=== PATIENT | male | born 1990 | race Caucasian/White ===

== ENCOUNTER 2023-05-24 20:30 | Emergency (ER) | payer OTHER, SELFPAY ==
[2023-05-24 20:39] VITALS: BP 141/91; PULSE 96; RESP 16; TEMP 36.6; O2SAT 98; BMI 27.3
[2023-05-24 21:55] VITALS: BP 135/84; PULSE 96; RESP 16; TEMP 36.6; O2SAT 98
--- NOTE | 2023-05-24 21:58 | ED.GENADULT ---
HPI - General Adult General Date Seen: 05/24/23 Chief complaint: Nausea/Vomiting Stated complaint: vomiting 12 hrs Time Seen by Provider: 05/24/23 20:56 History of Present Illness HPI narrative: This is a pleasant 33-year-old male with a past history including hypertension (previously on metoprolol, recently started on Semaglutide by his primary care provider) recent right chest wall injury with possible nondisplaced right 5th rib fracture, who presents to the ER today for nausea and vomiting. He had been on some Mag were tied for blood pressure: To help facilitate weight loss recently. They increased his dose and he took his 1st injection of the higher dose medication yesterday. Yesterday evening he he began to feel sick. He has had nausea since overnight and all day today. He has had multiple episodes, probably 6, nonbilious, nonbloody emesis. No diarrhea. No fever. His abdomen is mildly sore from vomiting but no other abdominal pain. No distention. He is suspicious that this is probably a side effect of his medicine. He also notes that there was a co-worker who was sick with vomiting and diarrhea few days ago. No other known sick contacts. Related Data Home Medications Medication Instructions Recorded Confirmed bupropion HCl 150 mg 24 hr tablet, 150 mg PO QAM 05/15/23 05/15/23 extended release dextroamphetamine-amphetamine 10 1 tab PO DAILY 05/15/23 05/15/23 mg tablet dextroamphetamine-amphetamine 20 1 tab PO DAILY 05/15/23 05/15/23 mg tablet fluoxetine 20 mg capsule 20 mg PO DAILY 05/15/23 05/15/23 metoprolol succinate 25 mg 25 mg PO DAILY 05/15/23 05/15/23 tablet,extended release 24 hr Allergies Allergy/AdvReac Type Severity Reaction Status Date / Time No Known Drug Allergies Allergy Verified 05/15/23 17:23 [facility] Medical History (Updated 05/24/23 @ 21:54 by Giovanni Vergara RN) No significant past medical history Surgical History (Updated 05/24/23 @ 21:54 by Giovanni eVrgara RN) No significant past surgical history Social History Smoking Status: Former smoker Second hand tobacco smoke exposure: No How often do you have a drink containing alcohol: never How often do you have six or more drinks on one occasion: Never AUDIT-C Alcohol total score: 0 Non-prescribed substance use: denies use Exam Narrative: Exam Narrative: Constitutional: Appears well-developed and well-nourished. Alert. Conversant. Non toxic. HENT: Head: Atraumatic. Nose: Nose normal. Mouth/Throat: Oral mucosa is clear but dry, not desiccated or cracked no trismus. Pharynx normal. Tonsils symmetric. No tonsillar enlargement, erythema, or exudate. Eyes: Conjunctivae normal. EOM normal. Pupils equal, round, and reactive to light. No scleral icterus. Neck: Normal range of motion. Neck supple. No tracheal deviation present. Cardiovascular: Normal rate, regular rhythm. No gallop. No friction rub. No murmur heard. Symmetric radial artery pulses Pulmonary/Chest: Effort normal. No stridor. No respiratory distress. No wheezes. No rales. No rhonchi . No tenderness. Abdominal: Soft. Bowel sounds normal. No distension. No mass. No tenderness. No rebound. No guarding. No right upper quadrant tenderness. No right lower quadrant tenderness. No Tapia side. Yo peritoneal findings. Musculoskeletal: RUE: Normal range of motion. No tenderness. No deformity LUE: Normal range of motion. No tenderness. No deformity RLE: Normal range of motion. No edema. No tenderness. No deformity LLE: Normal range of motion. No edema. No tenderness. No deformity Neurological: Alert and oriented to person, place, and time. Normal strength. CN II-VII intact. No sensory deficit. GCS eye subscore is 4. GCS verbal subscore is 5. GCS motor subscore is 6. Normal coordination Skin: Skin is warm and dry. No rash noted. No pallor. Normal capillary refill. Psychiatric: Normal mood. Normal affect. Const: Vital Signs, click to edit/add: Vital Signs - 24 hr 05/24/23 20:39 05/24/23 21:55 Temperature 97.9 F 97.9 F Pulse Rate [Left P ulse Oximeter] 96 96 Respiratory Rate 16 16 Blood Pressure [Ri ght Upper Arm] 141/91 H 135/84 Pulse Oximetry 98 98 Oxygen Delivery Me thod Room Air Room Air Course Vital Signs Vital signs: Initial Vital Signs Temperature 97.9 F 05/24/23 20:39 Temperature Source Temporal Artery Scan 05/24/23 20:39 Pulse Rate 96 05/24/23 20:39 Respiratory Rate 16 05/24/23 20:39 Blood Pressure 141/91 H 05/24/23 20:39 Blood Pressure Mean 107 H 05/24/23 20:39 Blood Pressure Position Sitting 05/24/23 20:39 Pulse Oximetry 98 05/24/23 20:39 Oxygen Delivery Method Room Air 05/24/23 20:39 Vital Signs Temperature 97.9 F 05/24/23 20:39 Pulse Rate 96 05/24/23 20:39 Respiratory Rate 16 05/24/23 20:39 Blood Pressure 141/91 H 05/24/23 20:39 Pulse Oximetry 98 05/24/23 20:39 Oxygen Delivery Method Room Air 05/24/23 20:39 Temperature 97.9 F 05/24/23 21:55 Pulse Rate 96 05/24/23 21:55 Respiratory Rate 16 05/24/23 21:55 Blood Pressure 135/84 05/24/23 21:55 Pulse Oximetry 98 05/24/23 21:55 Oxygen Delivery Method Room Air 05/24/23 21:55 Medical Decision Making [facility] Narrative Medical decision making narrative: This patient presents with vomiting a and nausea ongoing since yesterday night. Differential for the symptoms was broad. This could be possible viral GI infection. He has had a co-worker who was ill recently. Differential would also include bacterial enteritis, bowel obstruction, surgical intra-abdominal pathology such as cholecystitis, appendicitis. However abdominal exam is benign without any significant tenderness or peritoneal findings. Patient believes that his symptoms are probably a side effect of his medication.(wegovy). There is no high fever, severe pain, bilious or bloody emesis, blood or mucous in the stool, severe abdominal pain, or other concerning signs for a bacterial infection. No recent travel or high risk exposure for baceraial pathogen. No recent antibiotics or risk factors for C. diff. I don't see any evidence for appendicitis, bowel obstruction, abscess, bowel perforation, or other surgical emergency. We discussed options. My initial recommendation was for labs, IV, fluids, IV Zofran. Patient did not want to do this. We discussed possible Zofran 0 DT with oral p.o. challenge here in the ER. Patient prefers to receive a supply of Zofran for at home he will try to take it and hydrate orally at home. He understands that we do not know for sure if the Zofran will work and that if it fails he may after return to the ER later for re-evaluation. We have discussed oral rehydration. They understand and can perform the needed interventions at home. I have provided a prescription for antiemetics to facilitate oral hydration (the Zofran 0DT-10 tablets via [facility]). Incidentally he also complains of a mild diffuse headache. No associated fever neck stiffness suggest meningitis. No focal neurologic deficits. No recent head trauma. He believes the headache is probably related to dehydration. He will treat this with [id number] medications. At this point I do not think he needs workup with advanced imaging or lumbar puncture. Precautions for return to the ER reviewed. We have discussed the signs and symptoms of worsening dehydration. They understand the need for immediate reevaluation if any of these symptoms occur. They are also directed to obtain close outpatient follow up within 2-3 days. Discharge Plan Discharge Clinical Impression: Headache, Nausea & vomiting, Dehydration Patient Disposition: Home, Self-Care Condition: Stable Instructions: Acute Headache (DC), Acute Nausea and Vomiting (DC) Additional Instructions: As we discussed, please come back to the ER right away if you have worsening symptoms such as uncontrolled nausea and vomiting, bloody vomit, worsening dehydration, weakness, worsening headache, fever, abdominal pain. Use Zofran every 8 hours as needed for nausea. If your nausea and vomiting are side effects of her medicine it should get better in the next day or 2. If you not completely improved within 48 hours, please be rechecked in the ER or by your doctor Prescriptions: No Action metoprolol succinate 25 mg tablet extended release 24 hr 25 mg PO DAILY fluoxetine 20 mg capsule 20 mg PO DAILY bupropion HCl 150 mg tablet extended release 24 hr 150 mg PO QAM dextroamphetamine-amphetamine 20 mg tablet 1 tab PO DAILY dextroamphetamine-amphetamine 10 mg tablet 1 tab PO DAILY Follow Up/Referrals: Provider,Not a Local [Primary Care Provider] - Stand Alone Forms: [employer] Info Instructions
[2023-05-24 22:09] VITALS: BP 135/84; PULSE 96; RESP 16; TEMP 36.6
== END 2023-05-24 22:10 | disposition home or self-care (01) ==
LOC: ED 22:04
PROVIDERS: Emergency Provider Emergency Medicine
DX: R51.9 Headache, unspecified (principal); R11.2 Nausea with vomiting, unspecified; E86.0 Dehydration
CPT/HCPCS: 99283; 99284

== ENCOUNTER 2023-09-22 04:02 | Day surgery (SDC) | payer OTHER, SELFPAY ==
[2023-09-22] VITALS (27 sets, daily range): BP systolic 123–178; BP diastolic 82–108; PULSE 74–103; RESP 12–18; TEMP 36.6–37.3; O2SAT 94–99; BMI 27.3; BMI 27.1
--- NOTE | 2023-09-22 04:23 | CRLHL7_ITS ---
For Patients: As a result of the Century Cures Act, medical imaging exams and procedure reports are released immediately into your electronic medical record. You may view this report before your referring provider. If you have questions, please contact your health care provider. INDICATION: rlq pain TECHNIQUE: CT abdomen and pelvis with 93 cc Isovue 370 IV contrast. COMPARISON: None. FINDINGS: Hepatic steatosis. Gallbladder and biliary tree are normal. The spleen, adrenal glands and pancreas are within normal limits. Punctate nonobstructing left intrarenal calculus. No hydronephrosis. Unremarkable appearing bladder. No bowel obstruction. Dilated fluid-filled appendix, measuring up to 1 cm. Mild surrounding inflammation. No evidence of flor perforation or adjacent fluid collection. No significant free fluid and no free air. Pelvic organs are unremarkable. Solid right lower lobe pulmonary nodule, measuring 4 mm. Transitional lumbosacral anatomy with bilateral L5 sacralization. IMPRESSION: 1. Imaging findings compatible with acute appendicitis without evidence of flor perforation or adjacent fluid collection. 2. Hepatic steatosis. Please note that all CT scans at this facility use dose modulation, iterative reconstruction, and/or weight-based dosing when appropriate to reduce radiation dose to as low as reasonably achievable. Dictated by Andrzej Albarran MD @ 09/22/2023 5:43:16 AM (Electronically Signed)
--- NOTE | 2023-09-22 04:38 | ED.ABDPAIN ---
HPI - Abdominal Pain General Date Seen: 09/22/23 Chief Complaint: Abdominal Pain Stated Complaint: Abdominal Pain Time Seen by Provider: 09/22/23 04:21 Source: patient Mode of arrival: ambulatory Limitations: no limitations History of Present Illness HPI narrative: Patient is a 33-year-old male with no pertinent medical problems presenting to emergency department for abdominal pain. He states roughly 8 hours ago he started having periumbilical pain that has started to migrate down to the right lower quadrant. Did not notice the right lower quadrant pain though until nursing staff pressed on his abdomen. Denies ever having symptoms like this before. He did have diarrhea yesterday does note he is feeling nauseated today before he took Zofran. States he took the Zofran shortly prior to arrival. It states his only previous surgeries have been the liposuction. Denies fevers, chills, shortness of breath, chest pain, lightheadedness, dizziness, weakness, numbness. Has not noticed anything that makes the pain better or worse. Last ate at 17:00. Related Data Home Medications Medication Instructions Recorded Confirmed bupropion HCl 150 mg 24 hr tablet, 150 mg PO QAM 05/15/23 05/15/23 extended release dextroamphetamine-amphetamine 10 1 tab PO DAILY 05/15/23 05/15/23 mg tablet dextroamphetamine-amphetamine 20 1 tab PO DAILY 05/15/23 05/15/23 mg tablet fluoxetine 20 mg capsule 20 mg PO DAILY 05/15/23 05/15/23 metoprolol succinate 25 mg 25 mg PO DAILY 05/15/23 05/15/23 tablet,extended release 24 hr Allergies Allergy/AdvReac Type Severity Reaction Status Date / Time No Known Drug Allergies Allergy Verified 05/15/23 17:23 Review of Systems Status of ROS Reports: 10 or more systems reviewed and unremarkable except as noted in History and below [facility] Medical History No significant past medical history Surgical History No significant past surgical history Social History Smoking Status: Former smoker Second hand tobacco smoke exposure: No How often do you have a drink containing alcohol: monthly or less AUDIT-C Alcohol total score: 1 Non-prescribed substance use: denies use Exam Narrative: Exam Narrative: Const: Well-nourished, Well-developed, in mild distress Eyes: PERRL, no conjunctival injection, and symmetrical lids HENT: Atraumatic external nose and ears. Moist mucous membranes. Neck: Symmetric, trachea midline, No thyromegaly. CVS: RRR, No murmurs or gallops. Peripheral pulses 2+ and equal in all extremities RESP: Unlabored respiratory effort. Clear to auscultation bilaterally. GI: Periumbilical tenderness, right lower quadrant tenderness, positive McBurney sign Nondistended, No rebound or guarding. MSK:Extremities w/o deformity, Normal Active ROM Skin: Warm, Dry. No rashes or lesions. Neuro: Normal Muscle tone, No focal neurological deficits. Psych: Awake, Alert, & Oriented x3. Appropriate mood and affect. Const: Vital Signs, click to edit/add: Vital Signs - 24 hr 09/22/23 04:25 Temperature 99.2 F Pulse Rate [Pulse Oximeter] 102 H Respiratory Rate 18 Blood Pressure [Le ft Upper Arm] 129/96 H Pulse Oximetry 96 Oxygen Delivery Me thod Room Air Course Vital Signs Vital signs: Initial Vital Signs Temperature 99.2 F 09/22/23 04:25 Temperature Source Temporal Artery Scan 09/22/23 04:25 Pulse Rate 102 H 09/22/23 04:25 Respiratory Rate 18 09/22/23 04:25 Blood Pressure 129/96 H 09/22/23 04:25 Blood Pressure Mean 107 H 09/22/23 04:25 Blood Pressure Position Sitting 09/22/23 04:25 Pulse Oximetry 96 09/22/23 04:25 Oxygen Delivery Method Room Air 09/22/23 04:25 Vital Signs Temperature 99.2 F 09/22/23 04:25 Pulse Rate 102 H 09/22/23 04:25 Respiratory Rate 18 09/22/23 04:25 Blood Pressure 129/96 H 09/22/23 04:25 Pulse Oximetry 96 09/22/23 04:25 Oxygen Delivery Method Room Air 09/22/23 04:25 Temperature 99.2 F 09/22/23 04:25 Pulse Rate 102 H 09/22/23 04:25 Respiratory Rate 18 09/22/23 04:25 Blood Pressure 129/96 H 09/22/23 04:25 Pulse Oximetry 96 09/22/23 04:25 Oxygen Delivery Method Room Air 09/22/23 04:25 Medications Administered Medications: Discontinued Medications Generic Name Dose Route Start Last Admin Trade Name Cecelia PRN Reason Stop Dose Admin Morphine Sulfate 4 mg 09/22/23 04:22 09/22/23 05:02 Morphine 4 Mg/Ml Inj IVP 09/22/23 04:23 4 mg ONCE ONE Administration MDM - Abdominal Pain MDM Narrative Medical decision making narrative: Patient is a 33-year-old male presenting for abdominal pain. His presentation is concerning for appendicitis. Only other procedures have been liposuction. He is tachycardic and septic workup will be done. Also given morphine for pain. CT scan of the abdomen and pelvis were ordered. Lab work all returned showing no concerning abnormalities. He is not septic. Rest of his vitals are normal. He has COVID and flu negative. CT scan returned showing as expected acute appendicitis. I spoke to Dr. Robledo who will come to evaluate him. He will likely go to surgery this afternoon. Lab Data Labs: Lab Results 09/22/23 09/22/23 Range/Units 04:35 04:37 WBC 11.04 H (4.50-11.00) K/uL RBC 5.39 (4.30-5.90) m/uL Hgb 16.0 (13.5-17.5) gm/dL Hct 45.7 (37.0-53.0) % MCV 85 (80-100) fL MCH 30 (26-34) pg MCHC 35 (32-36) gm/dL RDW Coeff of Venita 12.4 (11.5-15.5) % Plt Count 245 (140-440) K/uL Neut % (Auto) 67.8 (42.0-72.0) % Lymph % (Auto) 22.1 (20-44) % Cochran % (Auto) 8.1 (0.0-11.0) % Eos % (Auto) 1.4 (0.0-7.0) % Baso % (Auto) 0.5 (0.0-3.0) % Neut # (Auto) 7.50 H (1.7-7.0) K/uL Lymph # (Auto) 2.40 (0.90-2.90) K/uL Cochran # (Auto) 0.90 (0.00-0.90) K/UL Eos # (Auto) 0.20 (0.00-0.50) K/uL Baso # (Auto) 0.10 (0.00-0.30) K/uL Abs Immat Gran (auto) 0.00 (0.00-0.30) K/uL Imm/Tot Granulo (auto) 0.1 % Sodium 140 (135-149) mmol/L Potassium 4.2 (3.6-5.1) mmol/L Chloride 105 (96-114) mmol/L Carbon Dioxide 25 (20-32) mmol/L Anion Gap 10 (7-15) mEq/L BUN 12 (5-24) mg/dL Creatinine 0.8 (0.5-1.5) mg/dL Estimated Creat Clear 133.07 Estimated GFR 118 ml/min Glucose 106 (60-115) mg/dL Lactate 1.4 (0.5-1.9) mmol/L Calcium 9.3 (8.4-10.6) mg/dL Total Bilirubin 0.9 (0.1-1.5) mg/dL AST 35 (12-35) U/L ALT 57 H (4-50) U/L Alkaline Phosphatase 72 (40-150) U/L Total Protein 7.5 (6.0-8.3) g/dL Albumin 4.9 (3.3-5.0) g/dL Lipase 62 (23-300) U/L SARS-CoV-2 (PCR) Negative SARS-CoV-2 (Negative) Influenza Type A (PCR) Negative PCR FLU A (Negative) Influenza Type B (PCR) Negative PCR FLU B (Negative) Imaging Data CT scan abdomen and pelvis: Radiologist's impression: 1. Imaging findings compatible with acute appendicitis without evidence of flor perforation or adjacent fluid collection. 2. Hepatic steatosis. Please note that all CT scans at this facility use dose modulation, iterative reconstruction, and/or weight-based dosing when appropriate to reduce radiation dose to as low as reasonably achievable. Dictated by Andrzej Albarran MD @ 09/22/2023 5:43:16 AM Discharge Plan Discharge Clinical Impression: Acute appendicitis Qualifiers: Acute appendicitis type: unspecified acute appendicitis type Qualified Code(s): K35.80 - Unspecified acute appendicitis Patient Disposition: Admitted As Observation Discharge Location: [facility] Condition: Stable
[2023-09-22 04:46] LABS: Lactate* 1.4 mmol/L (0.5-1.9)
[2023-09-22 04:51] LABS: Basophils Percent Auto 0.5 % (0.0-3.0); Eosinophils Percent Auto 1.4 % (0.0-7.0); Hematocrit 45.7 % (37.0-53.0); Immature Granulocytes Pct Auto 0.1 %; Lymphocytes Percent Auto 22.1 % (20-44); Mean Corpuscular HGB Conc 35 gm/dL (32-36); Mean Corpuscular Hemoglobin 30 pg (26-34); Mean Corpuscular Volume 85 fL (80-100); Monocytes Percent Auto 8.1 % (0.0-11.0); Neutrophils Percent Auto 67.8 % (42.0-72.0); Platelet Count* 245 K/uL (140-440); RDW Coefficient of Variation % 12.4 % (11.5-15.5); Red Blood Count 5.39 m/uL (4.30-5.90); White Blood Count* 11.04 K/uL (4.50-11.00)
[2023-09-22 04:56] LABS: Slide Review Reflex No
[2023-09-22] MEDS: MORPHINE 4 MG/ML INJ IVP (05:02)
[2023-09-22 05:03] LABS: Albumin* 4.9 g/dL (3.3-5.0); Chloride* 105 mmol/L (96-114); Sodium* 140 mmol/L (135-149)
[2023-09-22 05:04] LABS: Potassium* 4.2 mmol/L (3.6-5.1)
[2023-09-22 05:06] LABS: Alkaline Phosphatase* 72 U/L (40-150); Anion Gap 10 mEq/L (7-15); Aspartate Amino Transferase* 35 U/L (12-35); Bilirubin Total* 0.9 mg/dL (0.1-1.5); Blood Urea Nitrogen* 12 mg/dL (5-24); Carbon Dioxide* 25 mmol/L (20-32); Creatinine* 0.8 mg/dL (0.5-1.5); Est. Creatinine Clearance* 133.07; Estimated Glomerular Filt Rate 118 ml/min; Glucose* 106 mg/dL (60-115); Lipase* 62 U/L (23-300); Total Protein* 7.5 g/dL (6.0-8.3)
[2023-09-22 05:07] LABS: Alanine Aminotransferase* 57 U/L (4-50); Calcium* 9.3 mg/dL (8.4-10.6)
[2023-09-22 05:30] LABS: PCR FLU A Negative PCR FLU A (Negative); PCR FLU B Negative PCR FLU B (Negative); SARS PCR* Negative SARS-CoV-2 (Negative)
--- OUTSIDE RECORDS SUMMARY | 2023-09-22 05:31 | XMS_ITS | Clinical Summary ---
Author Name Unknown Organization [facility] Address [address] [place] [address] Care Team Providers Care Nautical Instrument Mechanic Name Role Phone Gabe Moreira MD Primary Care Provider + [phone] Source Comments You are receiving this document as you are listed as the primary care provider,follow-up provider, or the patient has been referred to you for consultation.This is in compliance with the Medicare and[facility] EHR Incentive Program,which states Providers who transition their patient to another setting of careor provider of care or refers their patient to another provider of care shouldprovide summary care record for each transition of care or referral. [facility] Allergies No known active allergies Medications Medication Sig Dispensed Refills Start Date End Date Status VITAMIN D OR 1 Capsule daily. 0 Active omega-3 fatty acids (FISH OIL) 1000 MG capsule Take 1,400 mg by mouth daily. 0 Active buPROPion (WELLBUTRIN XL) 150 MG 24 hour release tabletIndications:Ma chelsea depressive disorder, recurrent, in remission, unspecified (HRC),PTSD (post-traumatic stress disorder) (HRC) Take 1 Tablet (150 mg) by mouth daily. 90 Tablet 3 08/14/2023 Active metoprolol succinate (TOPROL XL) 25 MG 24 hour release tabletIndications:Pr imary hypertension (HRC) Take 1 Tablet (25 mg) by mouth daily. 90 Tablet 3 08/14/2023 08/13/2024 Active REMERON 15 MG tabletIndications:Sl eep disturbance Take 0.5-2 Tablets (7.5-30 mg) by mouth at bedtime as needed. 90 Tablet 3 08/14/2023 08/13/2024 Active traZODone (DESYREL) 50 MG tabletIndications:Sl eep disturbance Take 1-2 Tablets (50-100 mg) by mouth at bedtime as needed for Sleep. 90 Tablet 3 08/14/2023 Active amphetamine-dextroam phetamine (ADDERALL) 10 MG tabletIndications:At tention deficit hyperactivity disorder (ADHD), unspecified ADHD type (HRC) Take 1 Tablet (10 mg) by mouth daily at noon. 1 of 3 30 Tablet 0 08/14/2023 Active amphetamine-dextroam phetamine (ADDERALL) 10 MG tabletIndications:At tention deficit hyperactivity disorder (ADHD), unspecified ADHD type (HRC) Take 1 Tablet (10 mg) by mouth daily at noon. 2 of 3 Do not start before September 13, 2023. 30 Tablet 0 09/13/2023 10/13/2023 Active amphetamine-dextroam phetamine (ADDERALL) 10 MG tabletIndications:At tention deficit hyperactivity disorder (ADHD), unspecified ADHD type (HRC) Take 1 Tablet (10 mg) by mouth daily at noon. 3 of 3 Do not start before October 13, 2023. 30 Tablet 0 10/13/2023 11/12/2023 Active amphetamine-dextroam phetamine (ADDERALL) 20 MG tabletIndications:At tention deficit hyperactivity disorder (ADHD), unspecified ADHD type (HRC) Take 1 Tablet (20 mg) by mouth daily. 1 of 3 30 Tablet 0 08/14/2023 Active amphetamine-dextroam phetamine (ADDERALL) 20 MG tabletIndications:At tention deficit hyperactivity disorder (ADHD), unspecified ADHD type (HRC) Take 1 Tablet (20 mg) by mouth daily. 2 of 3 Do not start before September 13, 2023. 30 Tablet 0 09/13/2023 10/13/2023 Active amphetamine-dextroam phetamine (ADDERALL) 20 MG tabletIndications:At tention deficit hyperactivity disorder (ADHD), unspecified ADHD type (HRC) Take 1 Tablet (20 mg) by mouth daily. 3 of 3 Do not start before October 13, 2023. 30 Tablet 0 10/13/20234 Active DULoxetine (CYMBALTA) 30 MG capsuleIndications:M alysia depressive disorder, recurrent, in remission, unspecified (HRC),PTSD (post-traumatic stress disorder) (HRC) Take 1 Capsule (30 mg) by mouth daily. 90 Capsule 3 08/14/2023 08/13/2024 Active Active Problems Problem Noted Date Diagnosed Date CAREPLAN: CONTROLLED SUBSTANCE 08/14/2023 Overview: Medication: Adderall IR, 20 mg AM, 10 mg noon Indication: ADHD Follow Up: annually, last 08/14/2023 Drug Screen: annually, last 08/14/2023 Gabe Moreira MD 08/14/2023, 4:35 PM ADHD (attention deficit hyperactivity disorder) 04/28/2023 Primary hypertension 01/28/2022 Anxiety 05/01/2021 Last Assessment & Plan: Improved in the interim, more favourable circumstances contributing. Good tolerability and response to 60 mg of fluoxetine however did decrease back down to 40 mg about a month ago with ongoing stability and in both mood and anxiety. -continue Prozac, 40 mg daily -continue Wellbutrin XL, 150 mg daily Sleep disturbance 05/01/2021 Last Assessment & Plan: Stable with Trazodone as needed. -continue Trazodone, 50-100 mg HS PRN Major depressive disorder, r ecurrent, in remission, unspecified 03/26/2021 Last Assessment & Plan: Remains stable. Continue with current medication regimen as such. See A/P under anxiety continue Prozac, 40 mg daily -continue Wellbutrin XL, 150 mg daily PTSD (post-traumatic stress disorder) 05/01/2020 Last Assessment & Plan: See intake for initial impression. Ongoing residual symptoms notably occasional nightmares and night sweats however overall improved and manageable at this time. Resolved Problems Problem Noted Date Diagnosed Date Resolved Date Generalized anxiety disorder 04/19/2021 05/01/2021 On pre-exposure prophylaxis for HIV 05/01/2020 12/24/2021 Encounters Date Type Department Care Team Description 08/14/2023 3:00 PM [employer] Lab Visit [facility] [address], [address] [place] [address] CAREPLAN: CONTROLLED SUBSTANCE; Screening for diabetes mellitus (DM); Screening for cholesterol level 08/14/2023 2:20 PM [employer] Office Visit [facility] [address], [address] [place] [address] Gabe Moreira MD Routine health maintenance (Primary Dx); Major depressive disorder, recurrent, in remission, unspecified (HRC); PTSD (post-traumatic stress disorder) (HRC); Sleep disturbance; Attention deficit hyperactivity disorder (ADHD), unspecified ADHD type (HRC); CAREPLAN: CONTROLLED SUBSTANCE; Primary hypertension (HRC); Screening for cholesterol level; Screening for diabetes mellitus (DM); Encounter for immunization 08/13/2023 7:45 AM [employer] Therapy [facility] Physical Therapy [address] [place] [address] Riya Dozier, PT Right knee pain, unspecified chronicity (Primary Dx); Right ankle pain, unspecified chronicity 07/27/2023 11:25 AM [employer] Ancillary Procedure [facility] [address] [address] [place] [address] Ricarda Dempsey PA-C Right knee pain, unspecified chronicity 07/27/2023 10:40 AM [employer] Office Visit [facility] [address] [place] [phone] Ricarda Dempsey PA-C Iliotibial band syndrome of right side (Primary Dx) from Last 3 Months Immunizations Name Administration Dates Next Due 4vHPV (Gardasil) 11/12/2012,09/14/2012 9vHPV (Gardasil 9) 04/10/2017 Influenza (Flucelvax), Prese rv Free QIV 08/14/2023 Influenza IIV4 (Quadrivalent ) 0.5mL (12933) 07/25/2022,07/02/2020,10/21/2019, 018 MCV4 Tristen 2m.+ (two vial) 02/02/2017 Moderna Bivalent 12+ 07/25/2022 Moderna Monovalent 12+ 11/12/2020,09/26/2020 Moderna Monovalent Booster 12+ 09/15/2021 Tdap 01/12/2014 Family History Medical History Relation Name Comments Diabetes, Type II Mother Hui Hyperlipidemia Mother Hui Hypertension Mother Hui ADHD Brother Diabetes, Type II Maternal Grandfather Fernando Hyperlipidemia Maternal Grandfather Fernando Hypertension Maternal Grandfather Fernando Relation Name Status Comments Mother Hui Brother Maternal Grandfather Fernando Maternal Grandmother Paternal Grandmother Social History Tobacco Use Types Packs/Day Years Used Date Smoking Tobacco: Never Smokeless Tobacco: Never Tobacco Cessation:Counseling Given: Not Answered Alcohol Use Standard Drinks/Week Comments Yes 4 (1 standard drink = 0.6 oz pur e alcohol) 4 drinks per week PHQ-2 Answer Date Recorded PHQ-2 Score 6 08/14/2023 Financial Resource Strain Answer Date R ecorded Is it hard for you to pay fo r the very basics like food, housing, medical care or heating? No 04/20/2023 Food Insecurity Answer Date Recorded Does your food run out before you have the money to buy more? No 04/20/2023 Transportation Needs Answer Date Record ed Does a lack of transportatio n keep you from your medical appointments or from getting your medications? No 023 Sex and Gender Information Value Date Recorded Sex Assigned at Not on file Gender Identity Not on file Sexual Orientation Not on file Last Filed Vital Signs Vital Sign Reading Time Taken Comments Blood Pressure 128/85 08/14/2023 2:16 PM [employer] Pulse 74 08/14/2023 2:16 PM [employer] Temperature 36.8 ??C (98.2 ??F) 01/28/2022 9:12 AM CD T Respiratory Rate 12 01/28/2022 9:12 AM CDT Oxygen Saturation 97% 01/28/2022 9:12 AM CDT Inhaled Oxygen Concentration - - Weight 85.7 kg (189 lb) 08/14/2023 2:16 PM [employer] Height 176.5 cm (5' 9.5) 08/14/2023 2:16 PM [employer] Body Mass Index 27.51 08/14/2023 2:16 PM [employer] Plan of Treatment Health Maintenance Due Date Last Done Comments HepB (1) 1988 HepA (1 of 2 - Risk 2-dose series) 01/17/2007 COVID-19 Vaccine ( season) 2023 07/25/2022, 09/15/2021, 11/12/2020, Additional history exists DTaP/Tdap/Td (2 - Tdap) 01/13/2024 01/12/2014 Careplan Update 08/14/2024 08/14/2023 Drug Screen 08/14/2024 08/14/2023, 08/14/2023 Prescription Monitoring Program 08/14/2024 08/14/2023 Adult Preventive Visit 08/14/2025 , 07/25/2022, 12/24/2021 Diabetes Screening- (based on age and BMI) 08/14/2026 08/14/2023, 04/03/2021, 10/21/2019 Cholesterol 08/14/2028 08/14/2023, 04/03/2021 Zoster/Shingles (1 of 2) 01/17/2038 MCV4 Aged Out 02/02/2017 No longer eligi ble based on patient's age to complete this topic HPV Vaccine Completed 04/10/2017, 09/2012, 09/14/2012 Hep C Screening (Preventive Services) Completed 10/21/2019 HIV Screening (Preventive Services) Completed 04/24/2023, 07/25/2022, 04/03/2021, Additional history exists Influenza Completed 08/14/2023, 07/15, 07/02/2020, Additional history exists Hib Aged Out No longer eligi ble based on patient's age to complete this topic IPV (Polio) Aged Out No longer eligi ble based on patient's age to complete this topic Pneumococcal Aged Out No longer eligi ble based on patient's age to complete this topic Procedures Procedure Name Priority Date/Time Associated Diagnosis Comments URINE DRUG COMPREHENSIVE PANEL (WITH CONFIRMATION) Routine 08/14/2023 3:02 PM [employer] CAREPLAN: CONTROLLED SUBSTANCE RAPID PAIN MANAGEMENT PANEL URINE Routine 08/14/2023 3:02 PM [employer] CAREPLAN: CONTROLLED SUBSTANCE LIPID PANEL & DIRECT LDL (IF NEEDED) Routine 08/14/2023 3:01 PM [employer] Screening for cholesterol level HGB A1C Routine 08/14/2023 3:01 PM [employer] Screening for diabetes mellitus (DM) XR KNEE RT 3 VIEWS Routine 07/27/2023 11 :27 AM [employer] Right knee pain, unspecified chronicity from Last 3 Months Results * Rapid Pain Management Panel Urine without THC (08/14/2023 3:02 PM [employer]) [facility] Amphetamines Screen Not Detected Not Detected 08/15/2023 8:[address] [facility] Is patient prescribed amphetamines? Yes 08/15/2023 8:41 AM [facility] Barbiturates Screen Not Detected Not Detected 08/15/2023 8:[address] [facility] Is patient prescribed barbiturates? No 08/15/2023 8:41 AM [facility] Benzodiazepines Screen Not Detected Not Detected 08/15/2023 8:[address] [facility] Is patient prescribed benzodiazepine? No 08/15/2023 8:41 AM [facility] Buprenorphine Screen Not Detected Not Detected 08/15/2023 8:[address] [facility] Is patient prescribed buprenorphine? No 08/15/2023 8:41 AM [facility] Cocaine Metabolite Screen Not Detected Not Detected 08/15/2023 8:[address] [facility] Methadone Screen Not Detected Not Detected 08/15/2023 8:[address] [facility] Is patient prescribed methadone? No 08/15/2023 8:41 AM [facility] Opiates Screen Not Detected Not Detected 08/15/2023 8:[address] [facility] Is patient prescribed opiates? No 08/15/2023 8:41 AM [facility] Oxycodone Screen Not Detected Not Detected 08/15/2023 8:[address] [facility] Is patient prescribed oxycodone? No 08/15/2023 8:41 AM [employer] [facility] Is patient prescribed THC? No 08/15/2023 8:41 AM [facility] Phencyclidine (PCP) Screen Not Detected Not Detected 08/15/2023 8:[address] [facility] Creatinine, Urine, Random 40 >20 mg/dL 08/15/2023 8:[address] [facility] Urine Non-blood Collection / Unknown 08/14/2023 3:02 PM [facility] 08/14/2023 3:02 PM [facility] - 08/15/2023 8:41 AM [facility] The absence of expected drug(s) and/or drug metabolite(s) may indicate non-compliance, inappropriate timing of specimen collection relative to drug administration, poor drug absorption, diluted/adulterated urine or limitations of testing. The concentration must be greater than or equal to the cutoff concentration to be reported as positive. For medical purposes only: not valid for forensic, legal, or employment use. Gabe Moreira MD LAB_1 Performing Organization Address City/State/[facility] Co de Phone Number [address] [phone] [facility] [address] [place] [address], [facility] [phone] * (ABNORMAL) Urine Drug Comprehensive Panel (with Confirmation) (08/14/2023 3:02 PM [facility]) [id number] am, urine Not Detected Not Detected 08/18/2023 1:[address] [facility] Alprazolam, urine Not Detected Not Detected 01/2023 1:[address] [facility] Amitryptyline, urine Not Detected Not Detected 08/18/2023 1:[address] [facility] Amphetamine, urine Confirmed Positive(A) Not Detected 08/18/2023 1:[address] [facility] Benzoylecgonine, urine Not Detected Not Detected 08/18/2023 1:[address] [facility] Buprenorphine, urine Not Detected Not Detected 08/18/2023 1:[address] [facility] Bupropion, urine Confirmed Positive(A) Not Detected 08/18/2023 1:[address] [facility] Butalbital, urine Not Detected Not Detected 01/2023 1:[address] [facility] Carisoprodol, urine Not Detected Not Detected 08/18/2023 1:[address] [facility] Citalopram, urine Not Detected Not Detected 01/2023 1:[address] [facility] Clomipromine, urine Not Detected Not Detected 08/18/2023 1:[address] [facility] Clonazepam Metab 7-Aminoclonazepam , urine Not Detected Not Detected 08/18/2023 1:[address] [facility] Clonazepam, urine Not Detected Not Detected 01/2023 1:[address] [facility] Cocaine, urine Not Detected Not Detected 2022 1:[address] [facility] Codeine, urine Not Detected Not Detected 2022 1:[address] [facility] Cyclobenzaprine, urine Not Detected Not Detected 08/18/2023 1:[address] [facility] Desipramine, urine Not Detected Not Detected 08/18/2023 1:[address] [facility] Diazepam, urine Not Detected Not Detected 08/18 1:[address] [facility] Doxepin, urine Not Detected Not Detected 2022 1:[address] [facility] Ecstasy MDMA, urine Not Detected Not Detected 08/18/2023 1:[address] [facility] Ecstasy Metab MDA, urine Not Detected Not Detected 08/18/2023 1:[address] [facility] Fentanyl, urine Not Detected Not Detected 08/18 1:[address] [facility] Fluoxetine, urine Not Detected Not Detected 01/2023 1:[address] [facility] Gabapentin, urine Not Detected Not Detected 01/2023 1:[address] [facility] Heroin Metab 6-acetylmorphine, urine Not Detected Not Detected 08/18/2023 1:[address] [facility] Hydrocodone, urine Not Detected Not Detected 08/18/2023 1:[address] [facility] Hydromorphone, urine Not Detected Not Detected 08/18/2023 1:[address] [facility] Imipramine, urine Not Detected Not Detected 01/2023 1:[address] [facility] Ketamine, urine Not Detected Not Detected 08/18 1:[address] [facility] Lorazepam, urine Not Detected Not Detected 01/2023 1:[address] [facility] Marijuana Metabolite, urine Confirmed Positive(A) Not Detected 08/18/2023 1:[address] [facility] Meperidine, urine Not Detected Not Detected 01/2023 1:[address] [facility] Meprobamate, urine Not Detected Not Detected 08/18/2023 1:[address] [facility] Methadone Metab EDDP, urine Not Detected Not Detected 08/18/2023 1:[address] [facility] Methadone, urine Not Detected Not Detected 01/2023 1:[address] [facility] Methamphetamine, urine Not Detected Not Detected 08/18/2023 1:[address] [facility] Methylphenidate, urine Not Detected Not Detected 08/18/2023 1:[address] [facility] Mirtazapine, urine Not Detected Not Detected 08/18/2023 1:[address] [facility] Morphine, urine Not Detected Not Detected 08/18 1:[address] [facility] Norbuprenorphine, urine Not Detected Not Detected 08/18/2023 1:[address] [facility] Nordiazepam, urine Not Detected Not Detected 08/18/2023 1:[address] [facility] Desmethyldoxapine , urine Not Detected Not Detected 08/18/2023 1:[address] [facility] Norfentanyl, urine Not Detected Not Detected 08/18/2023 1:[address] [facility] Nortriptyline, urine Not Detected Not Detected 08/18/2023 1:[address] [facility] O-desmethylvenlaf axine, urine Not Detected Not Detected 08/18/2023 1:[address] [facility] Oxazepam, urine Not Detected Not Detected 08/18 1:[address] [facility] Oxycodone, urine Not Detected Not Detected 01/2023 1:[address] [facility] Oxymorphone, urine Not Detected Not Detected 08/18/2023 1:[address] [facility] Paroxatine, urine Not Detected Not Detected 01/2023 1:[address] [facility] Phencyclidine, urine Not Detected Not Detected 08/18/2023 1:[address] [facility] Phenobarbital, urine Not Detected Not Detected 08/18/2023 1:[address] [facility] Pregabalin, urine Not Detected Not Detected 01/2023 1:[address] [facility] Quetiapine, urine Not Detected Not Detected 01/2023 1:[address] [facility] Sertraline, urine Not Detected Not Detected 01/2023 1:[address] [facility] Tapentadol, urine Not Detected Not Detected 01/2023 1:[address] [facility] Temazepam, urine Not Detected Not Detected 01/2023 1:[address] [facility] Tramadol, urine Not Detected Not Detected 08/18 1:[address] [facility] Venlafaxine, urine Not Detected Not Detected 08/18/2023 1:[address] [facility] Zolpidem, urine Not Detected Not Detected 08/18 1:[address] [facility] Creatinine, Urine, Random 40 >20 mg/dL 08/18/2023 1:[address] [facility] Medication Check Inconsistent with Med List(A) Consistent with Med List 08/18/2023 1:[address] [facility] Patient Medication History Current Outpatient Medications Ordered in [facility]: amphetamine-de xtroamphetamin e (ADDERALL) 10 MG tablet [START ON 09/13/2023] amphetamine-de xtroamphetamin e (ADDERALL) 10 MG tablet [START ON 10/13/2023] amphetamine-de xtroamphetamin e (ADDERALL) 10 MG tablet amphetamine-de xtroamphetamin e (ADDERALL) 20 MG tablet [START ON 09/13/2023] amphetamine-de xtroamphetamin e (ADDERALL) 20 MG tablet [START ON 10/13/2023] amphetamine-de xtroamphetamin e (ADDERALL) 20 MG tablet buPROPion (WELLBUTRIN XL) 150 MG 24 hour release tablet DULoxetine (CYMBALTA) 30 MG capsule metoprolol succinate (TOPROL XL) 25 MG 24 hour release tablet omega-3 fatty acids (FISH OIL) 1000 MG capsule REMERON 15 MG tablet traZODone (DESYREL) 50 MG tablet VITAMIN D OR No current [facility]-ordered facility-admin istered medications on file. 08/18/2023 1:[address] [facility] Medication Interpretation Not prescribed and detected: Cannabis detected as THC metabolite Prescribed and not detected: Mirtazapine prescribed and not detected Prescribed and detected: Amphetamine prescribed and detected Bupropion prescribed and detected 08/18/2023 1:13 PM [employer] [facility] Urine Non-blood Collection / Unknown 08/14/2023 3:02 PM [employer] 08/14/2023 3:02 PM [employer] Narrative [facility] - 08/18/2023 1:13 PM [employer] The absence of expected drug(s) and/or drug metabolite(s) may indicate non-compliance, inappropriate timing of specimen collection relative to drug administration, poor drug absorption, diluted/adulterated urine or limitations of testing. The concentration must be greater than or equal to the cutoff concentration to be reported as positive. For medical purposes only: not valid for forensic, legal, or employment use. Analysis by LC-MS/MS Liquid Chromatography/Mass Spectrometry. This test was developed and its performance characteristics validated by [facility]. It has not been cleared nor approved by the FDA. Gabe Moreira MD LAB_1 [place] [address], [facility] [phone] * (ABNORMAL) Lipid Panel & Direct LDL (if Needed) (08/14/2023 3:01 PM [employer]) Cholesterol 159 0 - 199 mg/dL 08/14/2023 7:34 PM [facility] [employer] [facility]AL [facility] Triglyceride 154(H) <=149 mg/dL 08/14/2023 7:34 PM [facility] HDL Cholesterol 56 >=40 mg/dL 08/14/2023 7:34 PM [facility] LDL, Calculated 72 <130 mg/dL 08/14/2023 7:34 PM [facility] Non HDL Chol, Calculated 103 <=159 mg/dL 08/14/2023 7:34 PM [facility] [employer] [facility] Cholesterol/HDL Ratio 2.8 <=5.0 08/14/2023 7:34 PM [facility] Hours Fasting 0.1 8 - 12 Hours 08/14/2023 7:34 PM [facility] Blood Venipuncture / Unknown 08/14/2023 3:01 PM [employer] 08/14/2023 3:01 PM [employer] Gabe Moreira MD LAB_1 Performing Organization Address [facility] de Phone Number [facility] [address] [phone] * Hgb A1C (08/14/2023 3:01 PM [employer]) Hemoglobin A1C 4.6 <=5.6 % 08/14/2023 9:50 PM [employer] [facility] Estimated Average Glucose (Calc) 85 < 117 mg/dL 08/14/2023 9:50 PM [facility] Comment:Estimated average gl ucose (eAG) converts A1c into glucose units (mg/dL) and estimates average glucose over the past approximately 3 months. The eAG reference interval (<117 mg/dL) corresponds to an A1c of <5.7%. 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 FINDINGS: ??Right knee 3 views. No acute bony abnormalities. Joint spaces are intact. No significant knee effusion. Narrative Procedure Note Chuck Hua MD - 07/27/2023 IMPRESSION COMPARISON: None. FINDINGS: Right knee 3 views. No acute bony abnormalities. Joint spacesare intact. No significant knee effusion. Ricarda RANKIN GD from Last 3 Months Care Teams Nautical Instrument Mechanic Relationship Specialty Start Date End Date Gabe Moreira MD [address] [place] [id number] PCP - General Professional Organizer 04/30/20
--- OUTSIDE RECORDS SUMMARY | 2023-09-22 05:31 | XMS_ITS | Encounter Summary ---
Author Name Unknown Organization [facility] Address [address] [address] Care Team Providers Care Hat Marker Name Role Phone Gabe Moreira MD Primary Care Provider + [phone] Reason for Referral * Therapies (Routine) - New Request Specialty Diagnoses / Procedures Referred By Balwinder huntley Referred To Contact Diagnoses Right knee pain, unspecified chronicity Ricarda Dempsey PA-C [address] [facility] [place] [phone] Referral ID Status Reason Start Date Expiration Date V isits Requested Visits Authorized [id number] New Request 07/27/2023 07/26/2024 1 1 Scheduling Instructions Your clinician has recommended an appointment with Physical Therapy and Rehabilitation Services. You can quickly make your appointment online at [facility]/schedule. You can also call [phone] for help scheduling your appointment. We suggest you call your health insurance company about your coverage and benefits for this appointment. Question Answer Appointment Urgency? Non-Urgent Requested Services Evaluate and treat May use saline for irrigation or cleansing Yes dexamethasone use Yes May check glucose per protocol (see policy link below) or if patient has symptoms? Yes Comments IT band syndrome. Iontophoresis, dry needling, other modalities as appropriate. Eval and treat. ORT OPERATIONS SUPERVISOR * Procedure/Equipment (Routine) - Incomplete Specialty Diagnoses / Procedures Referred By Balwinder huntley Referred To Contact Diagnoses Right knee pain, unspecified chronicity Procedures XR Knee Rt 3 Views Ricarda Demspey PA-C [address] [facility] [place] [id number] Referral ID Status Reason Start Date Expiration Date V isits Requested Visits Authorized [id number] Incomplete 07/27/2023 10/25/2024 1 1 ORT OPERATIONS SUPERVISOR Reason for Visit * Reason Comments CONSULT Right knee pain, rig ht ankle pain Encounter Details Date Type Department Care Team Description 07/27/2023 10:40 AM AIRPORT OPERATIONS SUPERVISOR Office Visit [facility] Medicine [address] [place] [address] Ricarda Dempsey PA-C [address] [facility] [place] [phone] Iliotibial band syndrome of right side (Primary Dx) Social History Tobacco Use Types Packs/Day Years Used Date Smoking Tobacco: Never Smokeless Tobacco: Never Alcohol Use Standard Drinks/Week Comments Yes 4 (1 standard drink = 0.6 oz pur e alcohol) 4 drinks per week PHQ-2 Answer Date Recorded PHQ-2 Score 2 04/24/2023 Financial Resource Strain Answer Date R ecorded [...] on file Sexual Orientation Not on file documented as of this encounter Patient Instructions * Patient Instructions* Ricarda Dempsey PA-C - 07/27/2023 10:40 AM AIRPORT OPERATIONS SUPERVISOR You can do all of this together: 1000mg Tylenol up to 3 times a day as needed for pain. 600mg ibuprofen every 6 hours as needed for pain, especially before activity. Rub Voltaren Gel (topical antiinflammatory) over the affected joint up to 4 times a day. Ice for 20 minutes 3-4 times a day, especially after activity. Heat prior to activity. Do not take multiple NSAIDs at the same time. Meaning pick one and stick with that one. They work the same in the body and can cause kidney trouble if you take too much. Examples of NSAIDs: ibuprofen, Motrin, Advil, Naproxen, Aleve, Toradol, Celebrex. It is not recommended to take NSAIDs when also on a blood thinner. ORT OPERATIONS SUPERVISOR documented in this encounter Progress Notes * Ricarda Dempsey PA-C - 07/27/2023 10:40 AM CST Subjective: Chief Complaint Right Knee Pain Kemal Hill is a 33 y.o. male presents for evaluation and treatment of right knee pain. He complains of lateral knee pain when squatting. He typically was of the gym V days a week and does leg day about 2 days a week. He does have a history of IT band issues where he had a topical steroid and went through physical therapy for his glutes due to a pelvic tilt. He also sprained his ankle yesterdayand this is made just knee pain worse. No swelling, bruising, numbness, or tingling. He is not utilizing anything for pain management. He isn't having pain with walking. Past Medical History, Past Surgical History, Social History, and Family Medical History was reviewed and updated as appropriate. A complete review of systems was reviewed per the intake sheet and negative except as noted in HPI. No Known Allergies Objective: General : alert, cooperative, no distress, appears stated age Gait: Normal. The patient can bear weight on the injured extremity. Skin: Clean, dry, intact. No rashes or lesions. Right Lower Extremity Knee Effusion: None. Ecchymosis: none Tenderness: ITB Knee ROM: 0 to 140 degrees without subpatellar crepitance. Strength Normal Patella: Patella does track normally. Patellar apprehension test: negative Patellar compression test: negative Stability: Ranjit's test: stable Posterior drawer: stable Medial collateral ligament: stable Lateral collateral ligament: stable Jamey's Test: negative with no joint line tenderness Sensation: intact to light touch to pressure and light touch. Imaging X-rays: 3 views of the knee were taken and independently reviewed. Small bone spur noted to lateralpatella, otherwise unremarkable. Assessment: Right ITB syndrome Plan: We discussed the diagnosis and treatment options. We opted to move forward with a modality focused physical therapy program. I recommended he focus on hip flexor stretching and rolling out his ITB until he is able to get in with physical therapy. Recommended Voltaren gel 4 times a day for the next 2 weeks and as needed thereafter. He will follow up needed. Radiology studies and anatomy of the knee reviewed. Patient verbalized understanding and agreement to our treatment plan. All of his questions were answered to his satifaction. Ricarda Dempsey PA-C ORT OPERATIONS SUPERVISOR documented in this encounter Plan of Treatment Scheduled Referrals Name Type Priority Associated Diagnoses Orde r Schedule Physical Therapy Referral Routine Iliotibial band syndrome of right side Ordered: 07/27/2023 documented as of this encounter Results * XR Knee Rt 3 Views (07/27/2023 11:27 AM AIRPORT OPERATIONS SUPERVISOR) Anatomical Region Laterality Modality Lower Extremity, Knee Digital Ra diography 07/27/2023 11:2 0 AM AIRPORT OPERATIONS SUPERVISOR Impressions 07/27/2023 1:52 PM AIRPORT OPERATIONS SUPERVISOR COMPARISON: ??None. FINDINGS: ??Right knee 3 views. No acute bony abnormalities. Joint spaces are intact. No significant knee effusion. Narrative Procedure Note Chuck Hua MD - 07/27/2023 IMPRESSION COMPARISON: None. FINDINGS: Right knee 3 views. No acute bony abnormalities. Joint spacesare intact. No significant knee effusion. Ricarda Dempsey PA-C RAD GD documented in this encounter Visit Diagnoses Diagnosis Iliotibial band syndrome of right side- Primary Other disorder of muscle, ligament, and fascia Right knee pain, unspecified chronicity documented in this encounter Care Teams Hat Marker Relationship Specialty Start Date End Date Gabe Moreira MD [address] [place] [address] [id number] PCP - General Medical Record Librarians Teacher 04/30/20 documented as of this encounter
--- OUTSIDE RECORDS SUMMARY | 2023-09-22 05:31 | XMS_ITS | Encounter Summary ---
Author Name Unknown Organization [facility] Address [address] [place] [address] Care Team Providers Care Disk Sander Name Role Phone Gabe Moreira MD Primary Care Provider [phone] Reason for Visit * Reason Comments Depression Registry Call 2 Encounter Details Date Type Department Care Team Description 03/09/[address] [facility] [address], [address] [place] [address] Gbae Moreira MD [address] [place] [address] Depression Registry Call 2 Social History Tobacco Use Types Packs/Day Years Used Date Smoking Tobacco: Never Smokeless Tobacco: Never Alcohol Use Standard Drinks/Week Comments Yes 4 (1 standard drink = 0.6 oz pur e alcohol) 4 drinks per week PHQ-2 Answer Date Recorded PHQ-2 Score 3 07/25/2022 Sex and Gender Information Value Date Recorded Sex Assigned at Not on file Gender Identity Not on file Sexual Orientation Not on file documented as of this encounter Nursing Notes * Jackie Casiano CMA - 03/18/2023 1:23 PM CDT Contacted patient to complete PHQ9/GAD7. Also due for an office visit. Outcome of call: Left message. Jackie Casiano CMA 03/18/2023, 1:23 PM * Jackie Casiano CMA - 03/09/2023 2:15 PM CDT Contacted patient to complete PHQ9/GAD7. Patient also due for OV. Outcome of call: Left message. Jackie Casiano CMA 03/09/2023, 2:15 PM documented in this encounter Plan of Treatment Not on file documented as of this encounter Visit Diagnoses Not on filedocumented in this encounter Care Teams Disk Sander Relationship Specialty Start Date End Date Gabe Moreira MD [address] [place] [id number] PCP - General Sports Medicine Trainer 04/30/20 documented as of this encounter
--- OUTSIDE RECORDS SUMMARY | 2023-09-22 05:31 | XMS_ITS | Encounter Summary ---
Author Name Unknown Organization [facility] Address [address] [place] [address] Care Team Providers Care Dye Operator Name Role Phone Gabe Moreira MD Primary Care Provider + [phone] Encounter Details Date Type Department Care Team Description 04/03/2023 maria antonia Sandhu [phone] Social History Tobacco Use Types Packs/Day Years [...] on file documented as of this encounter Progress Notes * MARIA ANTONIA ELIZABETH PROVIDER - 04/03/2023 1:50 PM CDT maria antonia Treatment Plan Diagnosis Chlamydia Gonorrhea and Trichomoniasis Exposure Visit Date April 03, 2023 Kemal [place] Date of : 86 Provider Jatin Pereira Physician Tour Sales Representative Note From Provider Stephane Sommer! Please read through the attached treatment plan. If you have any questions or concerns, please do not hesitate to reach out. Take care, and have a great day Kemal!Jatin Inman PA-C Treatment Plan Since you were exposed to chlamydia, gonorrhea and trichomoniasis infections, let?? use antibioticsto treat a possible infection. I sent your prescriptions to [facility]/pharmacy. I??e also listed a few ofthe best ways to prevent spreading these infections and some additional self-care tips to help you protect yourself in the future. If you have questions, please use the Request a Follow-up button and we??l adjust your treatment for free. Order(s) Suprax 400 mg capsule Take 2 capsule oral single dose as directed for 1 day Note: Refills: None doxycycline monohydrate 100 mg capsule Take 1 capsule oral every twelve hours as directed for 7 days Note: Refills: None metronidazole 500 mg tablet Take 4 tablet oral single dose as directed Note: Take all tablets together as one dose. Refills: None Sent To: [facility]/pharmacy [address] [place] [address] Treatment Plan Self Care Tip Topics You??e Contagious! No Alcohol Complete Medication Take Medication With Food Notify Your Partners Get Retested Complications of Chlamydia, Gonorrhea and Trichomoniasis What to Expect If you follow the recommendations I made on the Treatment tab, the antibiotics should be able to treat the infections before you start feeling symptoms. However, if you do have symptoms and your symptoms don?? improve in the next 7 days, or if you need extra support or have any questions about yourTreatment Plan, please use the Request a Follow-up button and we'll discuss next steps. What to Watch Out For Give us a call if you experience: ??? Abdominal or pelvic pain ??? Extreme testicular pain and swelling ??? Rash on trunk, hands or soles of feet ??? Firm, painless, non-itchy skin ulcerations ??? Redness, itching and discharge from your eye(s) ??? Sore throat ??? Fever My Conditions, Orders, Allergies as of April 03, 2023 Standard condition list Depression post traumatic stress Current orders metronidazole (metronidazole) doxycycline monohydrate (doxycycline monohydrate) Suprax (cefixime) Wellbutrin XL (bupropion HCl) fluoxetine (fluoxetine) Allergies None Waste Remedies Information [facility] We are an online clinic open 06/04. If you have any questions or comments about this visit, please call or email [email or web address]. documented in this encounter Plan of Treatment Not on file documented as of this encounter Visit Diagnoses Not on filedocumented in this encounter Care Teams Dye Operator Relationship Specialty Start Date End Date Gabe Moreira MD [address] [place] [id number] PCP - General Business Reporter 04/30/20 documented as of this encounter
--- OUTSIDE RECORDS SUMMARY | 2023-09-22 05:31 | XMS_ITS | Encounter Summary ---
Author Name Unknown Organization [facility] Address [address] [address] Care Team Providers Care Accounts Payable Assistant Name Role Phone Gabe Moreira MD Primary Care Provider + [phone] Reason for Visit * Reason Comments Knee Problem * Therapies (Routine) - New Request Specialty Diagnoses / Procedures Referred By Balwinder huntley Referred To Contact Diagnoses Right knee pain, unspecified chronicity Ricarda Dempsey, PA-C [address] [facility] [place] [address] Referral ID Status Reason Start Date Expiration Date V isits Requested Visits Authorized [id number] New Request 07/27/2023 07/26/2024 1 1 Encounter Details Date Type Department Care Team Description 08/13/2023 7:45 AM LICENSE CLERK Therapy [facility], Physical Therapy [address] [place], [place] [id number] Riya Dozier, PT [address] [place] [address] Right knee pain, unspecified chronicity (Primary Dx); Right ankle pain, unspecified chronicity Social History Tobacco Use Types Packs/Day Years [...] as of this encounter Progress Notes * Riya Dozier, PT - 08/13/2023 7:45 AM CST Physical Therapy Knee Evaluation/Plan of Care Visit Number: 1 [employer] Initial Certification Period: 08/13/2023 to 11/11/23 Referring Provider: Ricarda Dempsey Referring Diagnosis: Iliotibial band syndrome of right side [M76.31] Orders: Evaluate & treat Precautions/Contraindications: None listed Date of Onset: A few weeks ago Standardized Functional Score at initial evaluation: History: Onset of right lateral knee pain after lifting/moving boxes at work a few weeks ago. Noteshx of ITB syndrome on/off. 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 Last episode was 5 years ago, resolved with PT. Has tried rolling his ITB and activity modification, sx are improving. Continues to feel soreness/achiness with stairs and walking a lot. Has modified his work outs, avoids squats and leg press. Patient also reports right anterior ankle pain as well. Onset 07/26/23 while [address] [place]a hill covering a soccer game for work. Has had difficulty with squatting and descending stairs since. Mentioned it to MD when he was seen for his knee but no direction given. Has appointment with PCP tomorrow so will plan to discuss it further given it is a work related injury. 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 Enjoys working out 4 days/week. Method of Injury: ITB after lifting boxes at work, ankle while walking up a hill during soccer gamecoverage for work Functional Limitations: Knee - heavy lifting, sleep Ankle - stepping down, squatting Patient's Therapy Goals: PLOF SUBJECTIVE: Pain Ratin/10 Falls in the Past Year: No. Past Medical History: See EMR for details regarding past medical history, medications and drug allergies. History is unremarkable. Review of Systems: Denies fever, chills, night sweats, unrelenting night pain, unexplained weight loss, bowel/bladder changes, saddle sensation changes. No past medical history on file. Past Surgical History: Procedure Laterality Date gyencomastia removal Bilateral 2020 LIPOSUCTION 02/2022 wisdom tooth extraction OBJECTIVE: General: Mood, orientation, behavior were appropriate. Patient was alert and oriented. Observation/Gait: WNL Edema: Not performed ROM ([id number]): Knee ROM full and painfree Hip ROM restricted but painfree Joint mobility: Not tested Flexibility: Hamstrings: tight Low Back/SI Screen: ROM WNL Neurological Screen: Sensation intact Strength: 5/5 Palpation: TTP distal ITB Special Tests (+ is a positive finding, - is a negative finding): NT Proprioception: Single leg stance: WNL Functional Tests: DL squat: toe out on the R, painful R anterior ankle SL squat: dynamic valgus, painful R anterior ankle TREATMENT TODAY: Physical Therapy Evaluation (CPT 56614): An evaluation was performed. The patient was determined tohave low complexity based on history, examination, clinical presentation of the patient and the PT's clinical decision making. The patient was educated on the condition, planned therapy intervention and expectations from treatment. Goals were a collaborative effort of the therapist and patient. Therapeutic Exercise (CPT 63742) x 30 minutes: Access Code: [email or web address] Exercises - Side Stepping with Resistance at Ankles - 4 x weekly - 2-3 sets - Standing Runner???s Clam - 4 x weekly - 3 reps - 30-45 hold - Standing Ankle Dorsiflexion Stretch on Chair - 2 x daily - 10-20 reps - Half Kneel Ankle Dorsiflexion Self-Mobilization - 2 x daily - 10-20 reps - Superman on Table - 4 x weekly - 1 reps - 20-60 hold - 90/90 Double Leg Hamstring Bridge at Bench (Run) - 4 x weekly - 3 sets - 10-15 reps Timed Code Treatment Minutes: 30 Total Treatment Minutes: 55 Plan for next treatment session: Review HEP, manual therapy prn, hip abductor strengthening - side plan with hip abduction, ankle mobilization and loading into DF as tolerated. Education/Handouts: Diagnosis Education, HEP Response to treatment: Good understanding of HEP ASSESSMENT: Therapist Impression: Presentation consistent with referring diagnosis of R ITB syndrome. Sx improving since onset but still limit him with working out. Impairments include proximal weakness. Tolerated glut med and core strengthening well today but challenged. He also presents with R ankle pain after walking up a hill covering a soccer game for work. Ankle pain limits him with stepping down and squatting. Briefly assessed and provided self DF mobs to address. He will discuss further with his PCP tomorrow. Skilled PT necessary to return to [facility]. Barriers to Learning: none Rehab Prognosis: Good PLAN: Planned Intervention/Education: Evaluation, Re-Evaluation, Education, Therapeutic Exercise, Manual Therapy, Neuromuscular Re-education, Self Care/Home Management, Gait Training, Therapeutic Activities PT Frequency/Duration: 2-4 visits over the course of 6 weeks Discharge Plan: Goal achievement, goal achievement with home exercise program or if progress plateaus. Informed Consent: Risks, benefits and alternatives to treatment have been explained. Patient and/orfamily in agreement with care plan. EXPECTED FUNCTIONAL OUTCOMES/GOALS: To be achieved in 6 weeks: HEP/Independent Management: Demonstrate independence with HEP and self- management following each treatment session ADL's: Resume previous sleep pattern including lying on sides without awakening due to symptoms. Ambulation: Descend stairs independently with reciprocal pattern with minimal to no symptoms and improved lower extremity alignment. Sports/Leisure: Return to working out/weight lifting without restrictions and without an increase in symptoms. Evaluation and Plan of Care completed by: Riya Dozier, PT 6:37 AM 08/13/2023 The drum printer is completed by the therapist and the referring clinician's electronic signature certifies medical necessity for the plan above. NSE CLERK documented in this encounter Plan of Treatment Scheduled Referrals Name Type Priority Associated Diagnoses Orde r Schedule Physical Therapy Referral Routine Iliotibial band syndrome of right side Ordered: 07/27/2023 documented as of this encounter Visit Diagnoses Diagnosis Right knee pain, unspecified chronicity- Primary Right ankle pain, unspecified chronicity documented in this encounter Care Teams Accounts Payable Assistant Relationship Specialty Start Date End Date Gabe Moreira MD [address] [place] [id number] PCP - General Tax Advisor 04/30/20 documented as of this encounter
--- OUTSIDE RECORDS SUMMARY | 2023-09-22 05:31 | XMS_ITS | Encounter Summary ---
Author Name Unknown Organization [facility] Address [address], [place] [address] Care Team Providers Care Association Executive Name Role Phone Gabe Moreira MD Primary Care Provider + [phone] Reason for Visit * Reason Comments ROUTINE HEALTH MAINTENANCE Encounter Details Date Type Department Care Team Description 08/14/2023 2:20 PM INSPECTING SUPERVISOR Office Visit [facility] [address], [address] [place] [address] Gabe Moreira MD [address] [place] [address] Routine health maintenance (Primary Dx); Major depressive disorder, recurrent, in remission, unspecified (HRC); PTSD (post-traumatic stress disorder) (HRC); Sleep disturbance; Attention deficit hyperactivity disorder (ADHD), unspecified ADHD type (HRC); CAREPLAN: CONTROLLED SUBSTANCE; Primary hypertension (HRC); Screening for cholesterol level; Screening for diabetes mellitus (DM); Encounter for immunization Social History Tobacco Use Types Packs/Day Years [...] on file documented as of this encounter Last Filed Vital Signs Vital Sign Reading Time Taken Comments Blood Pressure 128/85 08/14/2023 2:16 PM INSPECTING SUPERVISOR Pulse 74 08/14/2023 2:16 PM INSPECTING SUPERVISOR Temperature - - Respiratory Rate - - Oxygen Saturation - - Inhaled Oxygen Concentration - - Weight 85.7 kg (189 lb) 08/14/2023 2:16 PM INSPECTING SUPERVISOR Height 176.5 cm (5' 9.5) 08/14/2023 2:16 PM INSPECTING SUPERVISOR Body Mass Index 27.51 08/14/2023 2:16 PM INSPECTING SUPERVISOR documented in this encounter Patient Instructions * Patient Instructions* Adilia Ramos CMA - 08/14/2023 2:20 PM INSPECTING SUPERVISOR Images from the original note were not included. Well Visit, Ages 18 to 65: Care Instructions Well visits can help you stay healthy. Your doctor has checked your overall health and may have suggested ways to take good care of yourself. Your doctor also may have recommended tests. You can helpprevent illness with healthy eating, good sleep, vaccinations, regular exercise, and other steps. Get the tests that you and your doctor decide on. Depending on your age and risks, examples might include screening for diabetes; hepatitis C; HIV; and cervical, breast, lung, and colon cancer. Screening helps find diseases before any symptoms appear. Eat healthy foods. Choose fruits, vegetables, whole grains, lean protein, and low-fat dairy foods. Limit saturated fat and reduce salt. Limit alcohol. Men should have no more than 2 drinks a day. Women should have no more than 1. For some people, no alcohol is the best choice. Exercise. Get at least 30 minutes of exercise on most days of the week. Walking can be a good choice. Reach and stay at your healthy weight. This will lower your risk for many health problems. Take care of your mental health. Try to stay connected with friends, family, and community, and find ways to manage stress. If you're feeling depressed or hopeless, talk to someone. A counselor can help. If you don't have acounselor, talk to your doctor. Talk to your doctor if you think you may have a problem with alcohol or drug use. This includes prescription medicines, marijuana, and other drugs. Avoid tobacco and nicotine: Don't smoke, vape, or chew. If you need help quitting, talk to your doctor. Practice safer sex. Getting tested, using condoms or dental dams, and limiting sex partners can help prevent STIs. Use control if it's important to you to prevent . Talk with your doctor about your choices and what might be best for you. Prevent problems where you can. Protect your skin from too much sun, wash your hands, brush your teeth twice a day, and wear a seat belt in the car. Where can you learn more? 1. Go to https://www.[employer]/Telly. 2. Enter P072 in the search box. Current as of: April 19, 2023?Content Version: 13.9 ?? [employer]. Care instructions adapted under license by your healthcare professional. If you have questions about a medical condition or this instruction, always ask your healthcare professional. [employer] disclaims any warranty or liability for your use of this information. ECTING SUPERVISOR documented in this encounter Progress Notes * Gabe Moreira MD - 08/14/2023 2:20 PM CST Don Sommer presents for ROUTINE HEALTH MAINTENANCE care. Current concerns: Right ankle injury, slipped at work. In physical therapy. Will be workman's comp. Stopped his fluoxetine. This seemed to correlate to increased stress levels at work. Stress has improved but mood is still down. Is sleeping better since stopping it. Was dosing at night. Would like to get back on something. Would also like to transfer he BH medications to PCP. Consumption of fruits and vegetables is (P) 0 - 1 servings each day. Exercise is (P) 3 - 5 times per week, 30 minutes or more. Hearing concerns: (P) No Feels safe at home: (P) Yes Objective BP 128/85 (BP Location: Left Arm, BP Cuff Size: Large) Pulse 74 Ht 5' 9.5 (1.765 m) Wt 189 lb (85.7 kg) BMI 27.51 kg/m?? General Appearance: alert, well appearing, and in no apparent distress HEENT: lids normal, sclera clear, and conjunctiva normal and oropharynx clear, ear canals clear, TMs normal, mucus membranes moist, no oral lesions, normal nasal mucosa, and no nasal drainage Neck: no lymphadenopathy, no thyromegaly or nodules, and supple Heart: regular rate and rhythm, no murmurs, gallops or rubs, and normal S1 and S2 Lungs: clear to auscultation, no wheezes, rales or rhonchi, equal breath sounds throughout, and normal respiratory effort Abdomen: soft, nondistended, nontender, no palpable masses, no organomegaly, and normal bowel sounds Extremities: no edema and normal pedal pulses Musculoskeletal: appropriate bulk and tone, moving all extremities Neurologic: alert and oriented x 3 and non-focal Psychiatric: affect/mood normal, cooperative, normal judgement/insight, and memory intact Assessment/Plan 1. Routine health maintenance 2. Major depressive disorder, recurrent, in remission, unspecified (HRC) - buPROPion (WELLBUTRIN XL) 150 MG 24 hour release tablet; Take 1 Tablet (150 mg) by mouth daily. Dispense: 90 Tablet; Refill: 3 - DULoxetine (CYMBALTA) 30 MG capsule; Take 1 Capsule (30 mg) by mouth daily. Dispense: 90 Capsule;Refill: 3 3. PTSD (post-traumatic stress disorder) (HRC) - buPROPion (WELLBUTRIN XL) 150 MG 24 hour release tablet; Take 1 Tablet (150 mg) by mouth daily. Dispense: 90 Tablet; Refill: 3 - DULoxetine (CYMBALTA) 30 MG capsule; Take 1 Capsule (30 mg) by mouth daily. Dispense: 90 Capsule;Refill: 3 4. Sleep disturbance - REMERON 15 MG tablet; Take 0.5-2 Tablets (7.5-30 mg) by mouth at bedtime as needed. Dispense: 90 Tablet; Refill: 3 - traZODone (DESYREL) 50 MG tablet; Take 1-2 Tablets (50-100 mg) by mouth at bedtime as needed for Sleep. Dispense: 90 Tablet; Refill: 3 5. Attention deficit hyperactivity disorder (ADHD), unspecified ADHD type (HRC) - amphetamine-dextroamphetamine (ADDERALL) 10 MG tablet; Take 1 Tablet (10 mg) by mouth daily at noon. 1 of 3 Dispense: 30 Tablet; Refill: 0 - amphetamine-dextroamphetamine (ADDERALL) 10 MG tablet; Take 1 Tablet (10 mg) by mouth daily at noon. 2 of 3 Do not start before September 13, 2023. Dispense: 30 Tablet; Refill: 0 - amphetamine-dextroamphetamine (ADDERALL) 10 MG tablet; Take 1 Tablet (10 mg) by mouth daily at noon. 3 of 3 Do not start before October 13, 2023. Dispense: 30 Tablet; Refill: 0 - amphetamine-dextroamphetamine (ADDERALL) 20 MG tablet; Take 1 Tablet (20 mg) by mouth daily. 1 of3 Dispense: 30 Tablet; Refill: 0 - amphetamine-dextroamphetamine (ADDERALL) 20 MG tablet; Take 1 Tablet (20 mg) by mouth daily. 2 of3 Do not start before September 13, 2023. Dispense: 30 Tablet; Refill: 0 - amphetamine-dextroamphetamine (ADDERALL) 20 MG tablet; Take 1 Tablet (20 mg) by mouth daily. 3 of3 Do not start before October 13, 2023. Dispense: 30 Tablet; Refill: 0 6. CAREPLAN: CONTROLLED SUBSTANCE - CP CONTROLLED SUBSTANCE CAREPLAN UPDATE - CP CONTROLLED SUBSTANCE PRESCRIPTION MONITORING PROGRAM - Urine Drug Comprehensive Panel (with Confirmation); Future - Rapid Pain Management Panel Urine without THC; Future 7. Primary hypertension (HRC) - metoprolol succinate (TOPROL XL) 25 MG 24 hour release tablet; Take 1 Tablet (25 mg) by mouth daily. Dispense: 90 Tablet; Refill: 3 8. Screening for cholesterol level - Lipid Panel & Direct LDL (if Needed); Future 9. Screening for diabetes mellitus (DM) - Hgb A1C; Future 10. Encounter for immunization - Influenza ccIIV4 (Quadrivalent) (Flucelvax) RHM updated. Appropriate screening/monitoring studies ordered. Medication refills provided as needed. Controlled substance agreement initiated. He does take mediation holidays on weekends. Discussed restarting something to help with depressed mood. Currently on Wellbutrin. Previously on fluoxetine with this. Based on side effect profile, will try duloxetine at this time. Virtual visit for follow up in 1 month. Patient counseled: -healthy diet -increasing physical activity -safe alcohol consumption -sleep hygiene -stress management -recommended immunizations Gabe Moreira MD ECTING SUPERVISOR documented in this encounter Plan of Treatment Not on file documented as of this encounter Results * Rapid Pain Management Panel Urine without THC (08/14/2023 3:02 PM INSPECTING SUPERVISOR) Amphetamines Screen Not Detected Not Detected 08/15/2023 8:41 AM [facility] Is patient prescribed amphetamines? Yes 08/15/2023 8:41 AM [facility] Barbiturates Screen Not Detected Not Detected 08/15/2023 8:41 AM [facility] Is patient prescribed barbiturates? No 08/15/2023 8:41 AM [facility] Benzodiazepines Screen Not Detected Not Detected 08/15/2023 8:41 AM [facility] Is patient prescribed benzodiazepine? No 08/15/2023 8:41 AM [facility] Buprenorphine Screen Not Detected Not Detected 08/15/2023 8:41 AM [facility] Is patient prescribed buprenorphine? No 08/15/2023 8:41 AM [facility] Cocaine Metabolite Screen Not Detected Not Detected 08/15/2023 8:41 AM [facility] Methadone Screen Not Detected Not Detected 08/15/2023 8:41 AM [facility] Is patient prescribed methadone? No 08/15/2023 8:41 AM [facility] Opiates Screen Not Detected Not Detected 08/15/2023 8:41 AM [facility] Is patient prescribed opiates? No 08/15/2023 8:41 AM [facility] Oxycodone Screen Not Detected Not Detected 08/15/2023 8:41 AM [facility] Is patient prescribed oxycodone? No 08/15/2023 8:41 AM [facility] Is patient prescribed THC? No 08/15/2023 8:41 AM [facility] Phencyclidine (PCP) Screen Not Detected Not Detected 08/15/2023 8:41 AM [facility] Creatinine, Urine, Random 40 >20 mg/dL 08/15/2023 8:41 AM [facility] Urine Non-blood Collection / Unknown 08/14/2023 3:02 PM INSPECTING SUPERVISOR 08/14/2023 3:02 PM [facility] - 08/15/2023 8:41 AM [facility] The absence of expected drug(s) and/or drug metabolite(s) may indicate non-compliance, inappropriate timing of specimen collection relative to drug administration, poor drug absorption, diluted/adulterated urine or limitations of testing. The concentration must be greater than or equal to the cutoff concentration to be reported as positive. For medical purposes only: not valid for forensic, legal, or employment use. Gabe Moreira MD LAB_1 [place] [address], [facility] [phone] [facility] [address] [place] [address], [facility] [phone] * (ABNORMAL) Urine Drug Comprehensive Panel (with Confirmation) (08/14/2023 3:02 PM [facility]) Qziro-PY-Skptfnco am, urine Not Detected Not Detected 08/18/2023 1:13 PM [facility] Alprazolam, urine Not Detected Not Detected 01/2023 1:13 PM [facility] Amitryptyline, urine Not Detected Not Detected 08/18/2023 1:13 PM [facility] Amphetamine, urine Confirmed Positive(A) Not Detected 08/18/2023 1:13 PM [facility] Benzoylecgonine, urine Not Detected Not Detected 08/18/2023 1:13 PM [facility] Buprenorphine, urine Not Detected Not Detected 08/18/2023 1:13 PM [facility] Bupropion, urine Confirmed Positive(A) Not Detected 08/18/2023 1:13 PM [facility] Butalbital, urine Not Detected Not Detected 01/2023 1:13 PM [facility] Carisoprodol, urine Not Detected Not Detected 08/18/2023 1:13 PM [facility] Citalopram, urine Not Detected Not Detected 01/2023 1:13 PM [facility] Clomipromine, urine Not Detected Not Detected 08/18/2023 1:13 PM [facility] Clonazepam Metab 7-Aminoclonazepam , urine Not Detected Not Detected 08/18/2023 1:13 PM [facility] Clonazepam, urine Not Detected Not Detected 01/2023 1:13 PM [facility] Cocaine, urine Not Detected Not Detected 2022 1:13 PM [facility] Codeine, urine Not Detected Not Detected 2022 1:13 PM [facility] Cyclobenzaprine, urine Not Detected Not Detected 08/18/2023 1:13 PM [facility] Desipramine, urine Not Detected Not Detected 08/18/2023 1:13 PM [facility] Diazepam, urine Not Detected Not Detected 08/18 1:13 PM [facility] Doxepin, urine Not Detected Not Detected 2022 1:13 PM [facility] Ecstasy MDMA, urine Not Detected Not Detected 08/18/2023 1:13 PM [facility] Ecstasy Metab MDA, urine Not Detected Not Detected 08/18/2023 1:13 PM [facility] Fentanyl, urine Not Detected Not Detected 08/18 1:13 PM [facility] Fluoxetine, urine Not Detected Not Detected 01/2023 1:13 PM [facility] Gabapentin, urine Not Detected Not Detected 01/2023 1:13 PM [facility] Heroin Metab 6-acetylmorphine, urine Not Detected Not Detected 08/18/2023 1:13 PM [facility] Hydrocodone, urine Not Detected Not Detected 08/18/2023 1:13 PM [facility] Hydromorphone, urine Not Detected Not Detected 08/18/2023 1:13 PM [facility] Imipramine, urine Not Detected Not Detected 01/2023 1:13 PM [facility] Ketamine, urine Not Detected Not Detected 08/18 1:13 PM [facility] Lorazepam, urine Not Detected Not Detected 01/2023 1:13 PM [facility] Marijuana Metabolite, urine Confirmed Positive(A) Not Detected 08/18/2023 1:13 PM [facility] Meperidine, urine Not Detected Not Detected 01/2023 1:13 PM [facility] Meprobamate, urine Not Detected Not Detected 08/18/2023 1:13 PM [facility] Methadone Metab EDDP, urine Not Detected Not Detected 08/18/2023 1:13 PM [facility] Methadone, urine Not Detected Not Detected 01/2023 1:13 PM [facility] Methamphetamine, urine Not Detected Not Detected 08/18/2023 1:13 PM [facility] Methylphenidate, urine Not Detected Not Detected 08/18/2023 1:13 PM [facility] Mirtazapine, urine Not Detected Not Detected 08/18/2023 1:13 PM [facility] Morphine, urine Not Detected Not Detected 08/18 1:13 PM [facility] Norbuprenorphine, urine Not Detected Not Detected 08/18/2023 1:13 PM [facility] Nordiazepam, urine Not Detected Not Detected 08/18/2023 1:13 PM [facility] Desmethyldoxapine , urine Not Detected Not Detected 08/18/2023 1:13 PM [facility] Norfentanyl, urine Not Detected Not Detected 08/18/2023 1:13 PM [facility] Nortriptyline, urine Not Detected Not Detected 08/18/2023 1:13 PM [facility] O-desmethylvenlaf axine, urine Not Detected Not Detected 08/18/2023 1:13 PM [facility] Oxazepam, urine Not Detected Not Detected 08/18 1:13 PM [facility] Oxycodone, urine Not Detected Not Detected 01/2023 1:13 PM [facility] Oxymorphone, urine Not Detected Not Detected 08/18/2023 1:13 PM [facility] Paroxatine, urine Not Detected Not Detected 01/2023 1:13 PM [facility] Phencyclidine, urine Not Detected Not Detected 08/18/2023 1:13 PM [facility] Phenobarbital, urine Not Detected Not Detected 08/18/2023 1:13 PM [facility] Pregabalin, urine Not Detected Not Detected 01/2023 1:13 PM [facility] Quetiapine, urine Not Detected Not Detected 01/2023 1:13 PM [facility] Sertraline, urine Not Detected Not Detected 01/2023 1:13 PM [facility] Tapentadol, urine Not Detected Not Detected 01/2023 1:13 PM [facility] Temazepam, urine Not Detected Not Detected 01/2023 1:13 PM [facility] Tramadol, urine Not Detected Not Detected 08/18 1:13 PM [facility] Venlafaxine, urine Not Detected Not Detected 08/18/2023 1:13 PM [facility] Zolpidem, urine Not Detected Not Detected 08/18 1:13 PM [facility] Creatinine, Urine, Random 40 >20 mg/dL 08/18/2023 1:13 PM [facility] Medication Check Inconsistent with Med List(A) Consistent with Med List 08/18/2023 1:13 PM [facility] Patient Medication History Current Outpatient Medications Ordered in [facility]: amphetamine-de xtroamphetamin e (ADDERALL) 10 MG [...] MG tablet VITAMIN D OR No current [facility]-ordered facility-admin istered medications on file. 08/18/2023 1:13 PM [facility] Medication Interpretation Not prescribed and detected: Cannabis detected as THC metabolite Prescribed and not detected: Mirtazapine prescribed and not detected Prescribed and detected: Amphetamine prescribed and detected Bupropion prescribed and detected 08/18/2023 1:13 PM [facility] Urine Non-blood Collection / Unknown 08/14/2023 3:02 PM INSPECTING SUPERVISOR 08/14/2023 3:02 PM INSPECTING SUPERVISOR [facility] - 08/18/2023 1:13 PM INSPECTING SUPERVISOR The absence of expected drug(s) and/or drug [...] developed and its performance characteristics validated by [facility]. It has not been cleared nor approved by the FDA. Gabe Moreira MD LAB_[address] [phone] * (ABNORMAL) Lipid Panel & Direct LDL (if Needed) (08/14/2023 3:01 PM INSPECTING SUPERVISOR) Cholesterol 159 0 - 199 mg/dL 08/14/2023 7:34 PM [facility] Triglyceride 154(H) <=149 mg/dL 08/14/2023 7:34 PM [facility] HDL Cholesterol 56 >=40 mg/dL 08/14/2023 7:34 PM [facility] LDL, Calculated 72 <130 mg/dL 08/14/2023 7:34 PM [facility] Non HDL Chol, Calculated 103 <=159 mg/dL 08/14/2023 7:34 PM [facility] Cholesterol/HDL Ratio 2.8 <=5.0 08/14/2023 7:34 PM [facility] Hours Fasting 0.1 8 - 12 Hours 08/14/2023 7:34 PM [facility] Blood Venipuncture / Unknown 08/14/2023 3:01 PM INSPECTING SUPERVISOR 08/14/2023 3:01 PM INSPECTING SUPERVISOR Gabe Moreira MD LAB_1 Performing Organization Address [facility] de Phone Number [facility] [address] [place] [address] * Hgb A1C (08/14/2023 3:01 PM INSPECTING SUPERVISOR) Hemoglobin A1C 4.6 <=5.6 % 08/14/2023 9:50 PM INSPECTING SUPERVISOR [facility] Estimated Average Glucose (Calc) 85 < 117 mg/dL 08/14/2023 9:[address] [facility] Comment:Estimated average gl ucose (eAG) converts A1c into glucose units (mg/dL) and estimates average glucose over the past approximately 3 months. The eAG reference interval (<117 mg/dL) corresponds to an A1c of <5.7%. Blood Venipuncture / Unknown 08/14/2023 3:01 PM INSPECTING SUPERVISOR 08/14/2023 3:01 PM INSPECTING SUPERVISOR Gabe Moreira MD LAB_1 Performing Organization Address [facility] Co de Phone Number [place] [id number] [address] [phone] documented in this encounter Visit Diagnoses Diagnosis Routine health maintenance- Primary Routine general medical examination at a health care facility Major depressive disorder, recurrent, in remission, unspecified (HRC) PTSD (post-traumatic stress disorder) (HRC) Posttraumatic stress disorder Sleep disturbance Sleep disturbance, unspecified Attention deficit hyperactivity disorder (ADHD), unspecified ADHD type (HRC) CAREPLAN: CONTROLLED SUBSTANCE HP Custom HP Custom Primary hypertension (HRC) Unspecified essential hypertension Screening for cholesterol level Screening for lipoid disorders Screening for diabetes mellitus (DM) Screening for diabetes mellitus Encounter for immunization Need for other specified prophylactic vaccination against single bacterial disease documented in this encounter Care Teams Association Executive Relationship Specialty Start Date End Date Gabe Moreira MD [address] [place] [id number] PCP - General Turning Machine Operator Helper 04/30/20 documented as of this encounter
--- OUTSIDE RECORDS SUMMARY | 2023-09-22 05:31 | XMS_ITS | Encounter Summary ---
[facility] [address] [place] [address] Care Team Providers Care Telephone Claims Representative Name Role Phone Gabe Moreira MD Primary Care Provider + [phone] Reason for Referral * Procedure/Equipment (Routine) - Authorized Specialty Diagnoses / Procedures Referred By Contac t Referred To Contact Diagnoses Sleep disturbances Gabe Moreira MD [address] [place] [address] Referral ID Status Reason Start Date Expiration Date V isits Requested Visits Authorized [id number] Authorized 04/26/2023 07/25/2024 1 1 Scheduling Instructions Your provider has placed an order for you to have a home sleep test. You will be contacted within the next 7-10 business days to discuss scheduling your set-up appointment for this device. There may be a delay in the set-up of your home sleep test due to insurance coverage verification and prior authorization requirements. The location and contact information for the site where you will lease picker your device is as follows: [facility] [address] [place] [phone] (option 2) [email or web address] 1. You will be scheduled for a visit to the sleep center to lease picker via a curbside process. Please allow up to 15 minutes for the pick-up appointment. You will be expected to return the device to a drop box outside the clinic the following morning (before 10am). 2. Please notify us immediately at (option 2) if you are unable to keep your appointment. Failure to cancel or re -schedule your appointment may result in a cancellation fee. 3. Based upon the results of your home sleep test one of the following may occur. a. You may be referred, back to your ordering provider for a results visit to discuss the next steps. b. You may be referred for an in-center sleep study for a more thorough diagnostic test. c. You may be referred for an in-center sleep study to titrate Positive Airway Pressure (PAP) for treatment of obstructive sleep apnea (ARTIE). Return for F/U after sleep testing Patient will have the option to receive their results via MyChart or phone. Preliminary results will be provided within 3 business days. Final interpretation will be completed by a sleep specialist and can be discussed at your follow up visit. Depending on results, you may be contacted by Home Medical for positive airway pressure treatment. If you have additional questions, please visit our website at [email or web address] and review the information there. Question Answer Appointment Urgency? Non-Urgent Type of Study? Diagnostic Study Is this a repeat home study? No Comments SLEEP SERVICES REFERRAL --> HST (sent for cosign) HTN, Snoring Estimated body mass index is 29.11 kg/m?? as calculated from the following: Height as of 04/24/23: 5' 9.5 (1.765 m). Weight as of 04/24/23: 200 lb (90.7 kg). . Encounter Details Date Type Department Care Team Description 04/26/2023 Notes/Orders [facility] [address], [address] [place], [place] [id number] Gabe Moreira MD [address] [place] [address] Sleep disturbances (Primary Dx) Social History Tobacco Use Types [...] on file documented as of this encounter Plan of Treatment Scheduled Referrals Name Type Priority Associated Diagnoses Orde r Schedule Sleep Study (Home)-Portable Setup Referral Routine Sleep disturbances Ordered: 04/26/2023 documented as of this encounter Visit Diagnoses Diagnosis Sleep disturbances- Primary Sleep disturbance, unspecified documented in this encounter Care Teams Telephone Claims Representative Relationship Specialty Start Date End Date Gabe Moreira MD [address] [place] [id number] PCP - General Clinical Trial Educator 04/30/20 documented as of this encounter
--- OUTSIDE RECORDS SUMMARY | 2023-09-22 05:31 | XMS_ITS | Encounter Summary ---
Author Name Unknown Organization [facility] Address [address], [place] [address] Care Team Providers Care Sign Board Erector Name Role Phone Gabe Moreira MD Primary Care Provider + [phone] Reason for Referral * Consult/Transfer Care (Routine) - Closed Specialty Diagnoses / Procedures Referred By Balwinder t Referred To Contact Diagnoses Poor sleep pattern Gabe Moreira MD [address] [place] [address] Referral ID Status Reason Start Date Expiration Date Visits Re quested Visits Authorized [id number] Closed 04/24/2023 07/23/2024 1 1 Scheduling Instructions Your clinician has recommended an appointment with Sleep Health Services. Within this referral they may select to recommend you for: A. Consultation/Office Visit with a Sleep Medicine Specialist B. Consultation/Office Visit with an Insomnia Specialist C. Sleep Testing -In-Center Overnight Sleep Study D. Portable/Home Sleep test (Not all individuals will qualify for this type of study) Please Note: If sleep testing is recommended, it is not an automatic sleep study order and must first be reviewed by a sleep specialist to determine the next steps. The review process looks at multiple factors including your insurance requirements, personal health history, and [place] [employer] guidelines. This sleep services referral will be reviewed within two (2) business days and sent to the appropriate department for scheduling of the recommended appointment. If you do not hear from us within the next two (2) weeks, please contact us to help with triaging of your order: [facility], [place], [facility]- [phone] Question Answer Appointment Urgency Non-Urgent Sleep Service Requested Sleep Test Other Pertinent History Other Other Poor sleep quality, snoring, nightmares Previously Diagnosed ARTIE No Comments Comments: Age/Sex: 33 y.o. / male Height: 04/24/23 : 5' 9.5 (1.765 m) Weight: 04/24/23 : 200 lb (90.7 kg) BMI: Estimated body mass index is 29.11 kg/m?? as calculated from the following: Height as of this encounter: 5' 9.5 (1.765 m). Weight as of this encounter: 200 lb (90.7 kg). Reason for Visit * Reason Comments DEPRESSION Encounter Details Date Type Department Care Team Description 04/24/2023 2:00 PM CDT Office Visit [facility] [address], [address] [place] [address] Gabe Moreira MD [address] [place] [address] Poor sleep pattern (Primary Dx); Sleep disturbance; Major depressive disorder, recurrent, in remission, unspecified (HRC); Anxiety (HRC); PTSD (post-traumatic stress disorder) (HRC); Routine screening for STI (sexually transmitted infection) Social History Tobacco Use Types Packs/Day Years [...] appointments or from getting your medications? No 08/07/2 023 Sex and Gender Information Value Date Recorded Sex Assigned at Not on file Gender Identity Not on file Sexual Orientation Not on file documented as of this encounter Last Filed Vital Signs Vital Sign Reading Time Taken Comments Blood Pressure 118/82 04/24/2023 2:01 PM CDT Pulse 83 04/24/2023 2:01 PM CDT Temperature - - Respiratory Rate - - Oxygen Saturation - - Inhaled Oxygen Concentration - - Weight 90.7 kg (200 lb) 04/24/2023 2:01 PM CDT Height 176.5 cm (5' 9.5) 04/24/2023 2:01 PM CDT Body Mass Index 29.11 04/24/2023 2:01 PM CDT documented in this encounter Progress Notes * Gabe Moreira MD - 04/24/2023 2:00 PM CDT Historical: Chief Complaint Patient presents with DEPRESSION Sleep referral, Discuss going off of fluoxetine Depression Do you take any prescription medication for this condition? YES How many doses of medication have you missed in the past week? 0 Do you have medication side effect concerns? No Are you seeing a counselor or therapist? How many times a week are you exercising regularly? 1 - 2 times per week, 30 minutes or more Have you diagnosed/treated for depression in the past? YES Do you have a family history of depression? 04/24/2023 2:00 PM 07/25/2022 3:30 PM 02/20/2022 11:30 AM 01/28/2022 9:20 AM 12/24/2021 3:40 PM 05/24/2021 2:20 PM 04/04/2021 9:20 AM PHQ-9 PHQ-9 Score Total 9 13 12 10 9 14 19 Q1: Loss of Int/Pleas 1 2 2 1 1 1 3 Q2: Depressed mood 1 1 2 2 1 1 2 Q3: Sleep problems 3 3 2 3 3 3 3 Q4: Tired/Low Energy 1 3 2 2 2 2 3 Q5: Appetite change 1 1 0 0 0 1 1 Q6: Feelings of failure 1 1 1 1 1 1 3 Q7: Concentration Prob 1 2 3 1 1 2 3 Q8: Slow or Restless 0 0 0 0 0 2 0 Q9: Thought Self Harm 0 0 0 0 0 1 1 Date PHQ9 was completed 04/20/2023 07/23/2022 02/18/2022 01/27/2022 12/24/2021 RADHA 7 Scores 04/24/2023 2:00 PM 04/20/2023 11:17 AM 07/25/2022 3:30 PM RADHA-7 MC Feeling nervous, anxious, or on edge Several days MC Not being able to stop or control worrying Several days MC Worrying too much about different things More than half the days MC Trouble relaxing More than half the days MC Being so restless that it's hard to sit still Several days MC Becoming easily annoyed or irritableBLE Several days MC Feeling afraid as if something awful might happen Not at all RADHA-7 MyChart Scores 8 Feeling nervous 1 - Several days 1 - Several days Can't stop worrying 1 - Several days 2 - More than half the days Worrying too much 2 - More than half the days 2 - More than half the days Trouble relaxing 2 - More than half the days 2 - More than half the days Restlessness 1 - Several days 1 - Several days Easily annoyed 1 - Several days 1 - Several days Feeling afraid 0 - Not at all 0 - Not at all How difficult? Somewhat difficult Somewhat difficult Total score 8 9 Date Performed 04/20/2023 07/23/2022 Social History Substance and Sexual Activity Alcohol Use Yes Alcohol/week: 4.0 standard drinks Types: 6 Standard drinks or equivalent per week Comment: 4 drinks per week Social History Tobacco Use Smoking Status Never Smokeless Tobacco Never Social History Substance and Sexual Activity Drug Use Never Still not sleeping well. Lots of nightmares. Is seeing a clinical writer in [place], who is managing his meds for this now. Read that fluoxetine could make nightmares worse, so is wondering about stopping it. Initially tried prazosin for nightmares. Minimal benefit. Then on trazodone, which helped him sleepbetter. Tried switching to mirtazapine about 6 months ago, but thinks the trazodone worked better and would like to switch back. Is interested in doing a sleep study. Has gained some weight. Is concerned about sleep apnea. He isworking towards weight loss and has started Saxenda. Using an online weight loss clinic. Also newly diagnosed with adult ADHD by this [facility]. Has been doing well on 10 mg of Adderall BID. I did previously have him on naltrexone he had concerns about his alcohol use. States he is barely drinking any in the snow longer taking it. Does not struggle with cravings. Also requesting comprehensiveSTI testing today. I have personally reviewed the patient's allergies, medications, past medical history, family history, social history, rooming notes, and problem list in detail and updated the patient record as necessary. Observed: BP 118/82 (BP Location: Left Arm, BP Cuff Size: Large) Pulse 83 Ht 5' 9.5 (1.765 m) Wt 200 lb (90.7 kg) BMI 29.11 kg/m?? Physical Exam: General Appearance: alert, well appearing, and in no apparent distress HEENT: lids normal, sclera clear, and conjunctiva normal and oropharynx clear, mucus membranes moist, no oral lesions, normal nasal mucosa, and no nasal drainage Lungs: normal respiratory effort Musculoskeletal: appropriate bulk and tone, moving all extremities Neurologic: alert and oriented x 3 and non-focal Psychiatric: affect/mood normal, cooperative, normal judgement/insight, and memory intact Assessment/Plan: Poor sleep pattern - Sleep Services Sleep disturbance Major depressive disorder, recurrent, in remission, unspecified (HRC) - FLUoxetine (PROZAC) 10 MG capsule; Take 3 Capsules (30 mg) by mouth daily for 10 days, THEN 2 Capsules (20 mg) daily for 10 days, THEN 1 Capsule (10 mg) daily for 10 days. Anxiety (HRC) - FLUoxetine (PROZAC) 10 MG capsule; Take 3 Capsules (30 mg) by mouth daily for 10 days, THEN 2 Capsules (20 mg) daily for 10 days, THEN 1 Capsule (10 mg) daily for 10 days. PTSD (post-traumatic stress disorder) (HRC) - FLUoxetine (PROZAC) 10 MG capsule; Take 3 Capsules (30 mg) by mouth daily for 10 days, THEN 2 Capsules (20 mg) daily for 10 days, THEN 1 Capsule (10 mg) daily for 10 days. Routine screening for STI (sexually transmitted infection) - HIV 1/2 Ag/Ab 4th Generation; Future - Treponema Screen; Future - Chlamydia & GC, Urine (14 Years and Older); Future - Chlamydia & GC (14 Years and Older): Throat; Future - Chlamydia & GC (14 Years and Older): Rectum; Future - Chlamydia & GC, Urine (14 Years and Older) - Chlamydia & GC (14 Years and Older): Throat - Chlamydia & GC (14 Years and Older): Rectum Other orders - amphetamine-dextroamphetamine (ADDERALL) 10 MG tablet; Take 1 Tablet (10 mg) by mouth two times aday. - BD PEN NEEDLE MARIAM 2ND GEN 32G X 4 MM; USE WITH SAXENDA DAILY DIRECTED - SAXENDA 18 MG/3ML SOPN Concern with ongoing poor sleep despite having found medications that worked well in the past such as trazodone. Discontinue mirtazapine and switch back to trazodone today at previous dose. We will try tapering off of the fluoxetine. Decrease dose by 10 mg every 10 days. Can always restart if desired or consider alternative agent if needing medication in the future. He can follow with me or his [facility] for this. He will continue to follow with his [facility] [employer] [facility] Adderall management. Despite struggling with nightmares, he seems to have a poor quality sleep pattern in general. Thinks it has been affected by his weight. Reasonable to move forward with sleep study at this time. Could have more than one sleep related condition. Please see orders and patient instructions Gabe Moreira MD This document was prepared with voice recognition software likely resulting in unintentional word substitutions or other product marketing coordinator errors. Please contact me if clarification is needed. documented in this encounter Plan of Treatment Scheduled Referrals Name Type Priority Associated Diagnoses Orde r Schedule Sleep Services Referral Routine Poor sleep pattern Ordered: 04/24/2023 documented as of this encounter Procedures Procedure Name Priority Date/Time Associated Diagnosis Comments CHLAMYDIA & GC, URINE (14 YEARS AND OLDER) Routine 04/24/2023 2:43 PM CDT Routine screening for STI (sexually transmitted infection) CHLAMYDIA & GC (14 YEARS & OLDER) Routine 04/24/2023 2:43 PM CDT Routine screening for STI (sexually transmitted infection) CHLAMYDIA & GC (14 YEARS & OLDER) Routine 04/24/2023 2:43 PM CDT Routine screening for STI (sexually transmitted infection) documented in this encounter Results * Treponema Screen (04/24/2023 3:02 PM CDT) Pathologist [facility] Treponema Screen Result 0.030 {s_co_ratio } 04/24/2023 11:21 PM CDT [facility] Treponema Screen Interpretation Non Reactive Non Reactive 04/24/2023 11:21 PM CDT [facility] Blood Venipuncture / Unknown 04/24/2023 3:02 PM CDT 04/24/2023 3:02 PM CDT Gabe Moreira MD LAB_1 [facility] [address] * HIV 1/2 Ag/Ab 4th Generation (04/24/2023 3:02 PM CDT) Pathologist [facility] HIV 1/2 Antigen/Anti body (4th generation) Negative (Non Reactive) Negative (Non Reactive) 04/24/2023 7:51 PM CDT [facility] Comment:HIV-1 p24 Antigen an d HIV-1/HIV-2 Antibody not detected Blood Venipuncture / Unknown 04/24/2023 3:02 PM CDT 04/24/2023 3:02 PM CDT Gabe Moreira MD LAB_1 [facility] [id number] [place] [address] * Chlamydia & GC (14 Years and Older): Rectum (04/24/2023 2:43 PM CDT) Pathologist [facility] Chlamydia Trachomatis STD Not Detected Not Detected 04/24/2023 11:41 PM CDT [facility] N. gonorrhoeae STD Not Detected Not Detected 04/24/2023 11:41 PM CDT [facility] Swab STD RECTAL SWAB / Unknown Non-blood Collection / Unknown 04/24/2023 2:43 PM CDT 04/24/2023 3:54 PM CDT [facility] - 04/24/2023 11:41 PM CDT Test performed by Prototype Sewer Mediated Amplification (TMA). Gabe Moreira MD LAB_1 Performing Organization Address [facility] de Phone Number [facility] [address] [place] [address], [facility] [phone] * Chlamydia & GC (14 Years and Older): Throat (04/24/2023 2:43 PM CDT) Pathologist [facility] Chlamydia Trachomatis STD Not Detected Not Detected 04/24/2023 11:46 PM CDT [facility] N. gonorrhoeae STD Not Detected Not Detected 04/24/2023 11:46 PM CDT [facility] Swab STD THROAT SWAB / Unknown Non-blood Collection / Unknown 04/24/2023 2:43 PM CDT 04/24/2023 3:54 PM CDT [facility] - 04/24/2023 11:46 PM CDT Test performed by Prototype Sewer Mediated Amplification (TMA). Gabe Moreira MD LAB_1 Performing Organization Address [facility] de Phone Number [facility] [address] [place] [address] * Chlamydia & GC, Urine (14 Years and Older) (04/24/2023 2:43 PM CDT) Pathologist [facility] Chlamydia Trachomatis STD Not Detected Not Detected 04/24/2023 11:51 PM CDT [facility] N. gonorrhoeae STD Not Detected Not Detected 04/24/2023 11:51 PM CDT [facility] Urine STD (Urine for STD) Non-blood Collection / Unknown 04/24/2023 2:43 PM CDT 04/24/2023 3:55 PM CDT [facility] - 04/24/2023 11:51 PM CDT Test performed by Prototype Sewer Mediated Amplification (TMA). Urine Volume submitted was greater than 30 ml. Excess collection volume may decrease test sensitivity. Recollection suggested if clinically indicated. Gabe Moreira MD LAB_1 [facility] [address] [phone] documented in this encounter Visit Diagnoses Diagnosis Poor sleep pattern- Primary Other sleep disturbances Sleep disturbance Sleep disturbance, unspecified Major depressive disorder, recurrent, in remission, unspecified (HRC) Anxiety (HRC) Anxiety state, unspecified PTSD (post-traumatic stress disorder) (HRC) Posttraumatic stress disorder Routine screening for STI (sexually transmitted infection) Screening examination for venereal disease documented in this encounter Care Teams Sign Board Erector Relationship Specialty Start Date End Date Gabe Moreira MD [address] [place] [id number] PCP - General Disability Insurance Hearing Officer 04/30/20 documented as of this encounter
--- OUTSIDE RECORDS SUMMARY | 2023-09-22 05:31 | XMS_ITS | Encounter Summary ---
Author Name Unknown Organization [facility] Address [address] [place] [address] Care Team Providers Care Roads And Parking Lots Sweeper Operator Name Role Phone Gabe Moreira MD Primary Care Provider + [phone] Encounter Details Date Type Department Care Team Description 08/14/2023 3:00 PM OIL FIELD OPERATOR Lab Visit [facility] [address] [place] [address] CAREPLAN: CONTROLLED SUBSTANCE; Screening for diabetes mellitus (DM); Screening for cholesterol level Social History Tobacco Use Types Packs/Day Years [...] as of this encounter Plan of Treatment Not on file documented as of this encounter Procedures Procedure Name Priority Date/Time Associated Diagnosis Comments RAPID PAIN MANAGEMENT PANEL URINE Routine 08/14/2023 3:02 PM OIL FIELD OPERATOR CAREPLAN: CONTROLLED SUBSTANCE URINE DRUG COMPREHENSIVE PANEL (WITH CONFIRMATION) Routine 08/14/2023 3:02 PM OIL FIELD OPERATOR CAREPLAN: CONTROLLED SUBSTANCE LIPID PANEL & DIRECT LDL (IF NEEDED) Routine 08/14/2023 3:01 PM OIL FIELD OPERATOR Screening for cholesterol level HGB A1C Routine 08/14/2023 3:01 PM OIL FIELD OPERATOR Screening for diabetes mellitus (DM) documented in this encounter Results * (ABNORMAL) Urine Drug Comprehensive Panel (with Confirmation) (08/14/2023 3:02 PM OIL FIELD OPERATOR) [facility] [id number] am, urine Not Detected Not Detected 08/18/2023 1:13 PM [facility] Alprazolam, urine Not Detected Not Detected 01/2023 1:13 PM [facility] Amitryptyline, urine Not Detected Not Detected 08/18/2023 1:13 PM [facility] Amphetamine, urine Confirmed Positive(A) Not Detected 08/18/2023 1:13 PM [facility] Benzoylecgonine, urine Not Detected Not Detected 08/18/2023 1:13 PM [facility] Buprenorphine, urine Not Detected Not Detected 08/18/2023 1:13 PM [facility] Bupropion, urine Confirmed Positive(A) Not Detected 08/18/2023 1:13 PM [facility] Butalbital, urine Not Detected Not Detected 01/2023 1:13 PM [facility] Carisoprodol, urine Not Detected Not Detected 08/18/2023 1:13 PM [facility] Citalopram, urine Not Detected Not Detected 01/2023 1:13 PM [facility] Clomipromine, urine Not Detected Not Detected 08/18/2023 1:13 PM [facility] Clonazepam Metab 7-Aminoclonazepam , urine Not Detected Not Detected 08/18/2023 1:13 PM [facility] Clonazepam, urine Not Detected Not Detected 01/2023 1:13 PM [facility] Cocaine, urine Not Detected Not Detected 2022 1:13 PM [facility] Codeine, urine Not Detected Not Detected 2022 1:13 PM [facility] Cyclobenzaprine, urine Not Detected Not Detected 08/18/2023 1:13 PM [facility] Desipramine, urine Not Detected Not Detected 08/18/2023 1:13 PM [facility] Diazepam, urine Not Detected Not Detected 08/18 1:13 PM [facility] Doxepin, urine Not Detected Not Detected 2022 1:13 PM [facility] Ecstasy MDMA, urine Not Detected Not Detected 08/18/2023 1:13 PM [facility] Ecstasy Metab MDA, urine Not Detected Not Detected 08/18/2023 1:13 PM [facility] Fentanyl, urine Not Detected Not Detected 08/18 1:13 PM [facility] Fluoxetine, urine Not Detected Not Detected 01/2023 1:13 PM [facility] Gabapentin, urine Not Detected Not Detected 01/2023 1:13 PM [facility] Heroin Metab 6-acetylmorphine, urine Not Detected Not Detected 08/18/2023 1:13 PM [facility] Hydrocodone, urine Not Detected Not Detected 08/18/2023 1:13 PM [facility] Hydromorphone, urine Not Detected Not Detected 08/18/2023 1:13 PM [facility] Imipramine, urine Not Detected Not Detected 01/2023 1:13 PM [facility] Ketamine, urine Not Detected Not Detected 08/18 1:13 PM [facility] Lorazepam, urine Not Detected Not Detected 01/2023 1:13 PM [facility] Marijuana Metabolite, urine Confirmed Positive(A) Not Detected 08/18/2023 1:13 PM [facility] Meperidine, urine Not Detected Not Detected 01/2023 1:13 PM [facility] Meprobamate, urine Not Detected Not Detected 08/18/2023 1:13 PM [facility] Methadone Metab EDDP, urine Not Detected Not Detected 08/18/2023 1:13 PM [facility] Methadone, urine Not Detected Not Detected 01/2023 1:13 PM [facility] Methamphetamine, urine Not Detected Not Detected 08/18/2023 1:13 PM [facility] Methylphenidate, urine Not Detected Not Detected 08/18/2023 1:13 PM [facility] Mirtazapine, urine Not Detected Not Detected 08/18/2023 1:13 PM [facility] Morphine, urine Not Detected Not Detected 08/18 1:13 PM [facility] Norbuprenorphine, urine Not Detected Not Detected 08/18/2023 1:13 PM [facility] Nordiazepam, urine Not Detected Not Detected 08/18/2023 1:13 PM [facility] Desmethyldoxapine , urine Not Detected Not Detected 08/18/2023 1:13 PM [facility] Norfentanyl, urine Not Detected Not Detected 08/18/2023 1:13 PM [facility] Nortriptyline, urine Not Detected Not Detected 08/18/2023 1:13 PM [facility] O-desmethylvenlaf axine, urine Not Detected Not Detected 08/18/2023 1:13 PM [facility] Oxazepam, urine Not Detected Not Detected 08/18 1:13 PM [facility] Oxycodone, urine Not Detected Not Detected 01/2023 1:13 PM [facility] Oxymorphone, urine Not Detected Not Detected 08/18/2023 1:13 PM [facility] Paroxatine, urine Not Detected Not Detected 01/2023 1:13 PM [facility] Phencyclidine, urine Not Detected Not Detected 08/18/2023 1:13 PM [facility] Phenobarbital, urine Not Detected Not Detected 08/18/2023 1:13 PM [facility] Pregabalin, urine Not Detected Not Detected 01/2023 1:13 PM [facility] Quetiapine, urine Not Detected Not Detected 01/2023 1:13 PM [facility] Sertraline, urine Not Detected Not Detected 01/2023 1:13 PM [facility] Tapentadol, urine Not Detected Not Detected 01/2023 1:13 PM [facility] Temazepam, urine Not Detected Not Detected 01/2023 1:13 PM [facility] Tramadol, urine Not Detected Not Detected 08/18 1:13 PM [facility] Venlafaxine, urine Not Detected Not Detected 08/18/2023 1:13 PM [facility] Zolpidem, urine Not Detected Not Detected 08/18 1:13 PM [facility] Creatinine, Urine, Random 40 >20 mg/dL 08/18/2023 1:13 PM [facility] Medication Check Inconsistent with Med List(A) Consistent with Med List 08/18/2023 1:13 PM [facility] Patient Medication History Current Outpatient Medications Ordered in [facility]: amphetamine-de xtroamphetamin e (ADDERALL) 10 MG tablet [...] MG tablet VITAMIN D OR No current [facility]-ordered facility-admin istered medications on file. 08/18/2023 1:13 PM [facility] Medication Interpretation Not prescribed and detected: Cannabis detected as THC metabolite Prescribed and not detected: Mirtazapine prescribed and not detected Prescribed and detected: Amphetamine prescribed and detected Bupropion prescribed and detected 08/18/2023 1:13 PM [facility] Urine Non-blood Collection / Unknown 08/14/2023 3:02 PM OIL FIELD OPERATOR 08/14/2023 3:02 PM [facility] - 08/18/2023 1:13 PM [facility] The absence of expected drug(s) and/or drug [...] developed and its performance characteristics validated by [facility]. It has not been cleared nor approved by the FDA. Gabe Moreira MD LAB_[address] [address], [facility] [phone] * Rapid Pain Management Panel Urine without THC (08/14/2023 3:02 PM OIL FIELD OPERATOR) Amphetamines Screen Not Detected Not Detected 08/15/2023 8:41 AM [facility] Is patient prescribed amphetamines? Yes 08/15/2023 8:41 AM [facility] Barbiturates Screen Not Detected Not Detected 08/15/2023 8:41 AM [facility] Is patient prescribed barbiturates? No 08/15/2023 8:41 AM [facility] Benzodiazepines Screen Not Detected Not Detected 08/15/2023 8:41 AM [facility] Is patient prescribed benzodiazepine? No 08/15/2023 8:41 AM [facility] Buprenorphine Screen Not Detected Not Detected 08/15/2023 8:41 AM [facility] Is patient prescribed buprenorphine? No 08/15/2023 8:41 AM [facility] Cocaine Metabolite Screen Not Detected Not Detected 08/15/2023 8:41 AM [facility] Methadone Screen Not Detected Not Detected 08/15/2023 8:41 AM [facility] Is patient prescribed methadone? No 08/15/2023 8:41 AM [facility] Opiates Screen Not Detected Not Detected 08/15/2023 8:41 AM [facility] Is patient prescribed opiates? No 08/15/2023 8:41 AM [facility] Oxycodone Screen Not Detected Not Detected 08/15/2023 8:41 AM [facility] Is patient prescribed oxycodone? No 08/15/2023 8:41 AM [facility] Is patient prescribed THC? No 08/15/2023 8:41 AM [facility] Phencyclidine (PCP) Screen Not Detected Not Detected 08/15/2023 8:41 AM [facility] Creatinine, Urine, Random 40 >20 mg/dL 08/15/2023 8:41 AM [facility] Urine Non-blood Collection / Unknown 08/14/2023 3:02 PM OIL FIELD OPERATOR 08/14/2023 3:02 PM OIL FIELD OPERATOR Narrative [facility] - 08/15/2023 8:41 AM OIL FIELD OPERATOR The absence of expected drug(s) and/or drug metabolite(s) may indicate non-compliance, inappropriate timing of specimen collection relative to drug administration, poor drug absorption, diluted/adulterated urine or limitations of testing. The concentration must be greater than or equal to the cutoff concentration to be reported as positive. For medical purposes only: not valid for forensic, legal, or employment use. Gabe Moreira MD LAB_[address] [address], [facility] [phone] [facility] [address] [place] [address], [facility] [phone] * (ABNORMAL) Lipid Panel & Direct LDL (if Needed) (08/14/2023 3:01 PM OIL FIELD OPERATOR) Cholesterol 159 0 - 199 mg/dL 08/14/2023 7:34 PM [facility] Triglyceride 154(H) <=149 mg/dL 08/14/2023 7:34 PM [facility] HDL Cholesterol 56 >=40 mg/dL 08/14/2023 7:34 PM [facility] LDL, Calculated 72 <130 mg/dL 08/14/2023 7:34 PM [facility] Non HDL Chol, Calculated 103 <=159 mg/dL 08/14/2023 7:34 PM [facility] Cholesterol/HDL Ratio 2.8 <=5.0 08/14/2023 7:34 PM [facility] Hours Fasting 0.1 8 - 12 Hours 08/14/2023 7:34 PM [facility] Blood Venipuncture / Unknown 08/14/2023 3:01 PM OIL FIELD OPERATOR 08/14/2023 3:01 PM OIL FIELD OPERATOR Gabe Moreira MD LAB_1 Performing Organization Address [facility] de Phone Number [facility] [address] [phone] * Hgb A1C (08/14/2023 3:01 PM OIL FIELD OPERATOR) Hemoglobin A1C 4.6 <=5.6 % 08/14/2023 9:50 PM [facility] Estimated Average Glucose (Calc) 85 < 117 mg/dL 08/14/2023 9:50 PM [facility] Comment:Estimated average gl ucose (eAG) converts A1c into glucose units (mg/dL) and estimates average glucose over the past approximately 3 months. The eAG reference interval (<117 mg/dL) corresponds to an A1c of <5.7%. Blood Venipuncture / Unknown 08/14/2023 3:01 PM OIL FIELD OPERATOR 08/14/2023 3:01 PM OIL FIELD OPERATOR Gabe Moreira MD LAB_1 Performing Organization Address [facility] de Phone Number [facility] [address] [phone] documented in this encounter Visit Diagnoses Diagnosis CAREPLAN: CONTROLLED SUBSTANCE HP Custom HP Custom Screening for diabetes mellitus (DM) Screening for diabetes mellitus Screening for cholesterol level Screening for lipoid disorders documented in this encounter Care Teams Roads And Parking Lots Sweeper Operator Relationship Specialty Start Date End Date Gabe Moreira MD [address] [place] [id number] PCP - General Cast Shell Grinder 04/30/20 documented as of this encounter
--- OUTSIDE RECORDS SUMMARY | 2023-09-22 05:31 | XMS_ITS | Encounter Summary ---
Author Name Unknown Organization [facility] Address [address] [place] [address] Care Team Providers Care Putty Maker Name Role Phone Gabe Moreira MD Primary Care Provider + [phone] Encounter Details Date Type Department Care Team Description 04/24/2023 3:00 PM CDT Lab Visit [facility] [address], [address] [place] [address] Routine screening for STI (sexually transmitted infection) [...] Procedure Name Priority Date/Time Associated Diagnosis Comments TREPONEMA SCREEN Routine 04/24/2023 3:02 PM CDT Routine screening for STI (sexually transmitted infection) HIV 1/2 AG/AB 4TH GEN Routine 04/24/2023 3:02 PM CDT Routine screening for STI (sexually transmitted infection) documented in this encounter Results * Treponema Screen (04/24/2023 3:02 PM CDT) Treponema Screen Result 0.030 {s_co_ratio } 04/24/2023 11:21 PM CDT [facility] Treponema Screen Interpretation Non Reactive Non Reactive 04/24/2023 11:21 PM CDT [facility] Blood Venipuncture / Unknown 04/24/2023 3:02 PM CDT 04/24/2023 3:02 PM CDT Gabe Moreira MD LAB_1 [facility] [address] * HIV 1/2 Ag/Ab 4th Generation (04/24/2023 3:02 PM CDT) HIV 1/2 Antigen/Anti body (4th generation) Negative (Non Reactive) Negative (Non Reactive) 04/24/2023 7:51 PM CDT [facility] Comment:HIV-1 p24 Antigen an d HIV-1/HIV-2 Antibody not detected Blood Venipuncture / Unknown 04/24/2023 3:02 PM CDT 04/24/2023 3:02 PM CDT Gabe Moreira MD LAB[facility]1 [facility] [address] [phone] documented in this encounter Visit Diagnoses Diagnosis Routine screening for STI (sexually transmitted infection) Screening examination for venereal disease documented in this encounter Care Teams Putty Maker Relationship Specialty Start Date End Date Gabe Moreira MD [address] [place] [id number] PCP - General Formstone Fitter 04/30/20 documented as of this encounter
--- OUTSIDE RECORDS SUMMARY | 2023-09-22 05:31 | XMS_ITS | Encounter Summary ---
Author Name Unknown Organization [facility] Address [address] [facility] [place] [address] Care Team Providers Care Hanger Name Role Phone Gabe Moreira MD Primary Care Provider + [phone] Reason for Visit * Procedure/Equipment (Routine) - Incomplete Specialty Diagnoses / Procedures Referred By Balwinder t Referred To Contact Diagnoses Right knee pain, unspecified chronicity Procedures XR Knee Rt 3 Views Ricarda Dempsey PA-C [address] [place] [address] Referral ID Status Reason Start Date Expiration Date V isits Requested Visits Authorized [id number] Incomplete 07/27/2023 10/25/2024 1 1 Encounter Details Date Type Department Care Team Description 07/27/2023 11:25 AM SUPERVISOR PULLET FARM Ancillary Procedure [facility] [address] Radiology [address] [place] [address] Ricarda Dempsey PA-C [address] [place] [id number] Right knee pain, unspecified chronicity Social History Tobacco Use [...] Procedure Name Priority Date/Time Associated Diagnosis Comments XR KNEE RT 3 VIEWS Routine 07/27/2023 11 :27 AM SUPERVISOR [employer] Right knee pain, unspecified chronicity documented in this encounter Results * XR Knee Rt 3 Views (07/27/2023 11:27 AM SUPERVISOR [employer]) Anatomical Region Laterality Modality Lower Extremity, Knee Digital Ra diography 07/27/2023 11:2 0 AM SUPERVIS[employer] Impressions 07/27/2023 1:52 PM SUPER[employer] COMPARISON: ??None. FINDINGS: ??Right knee 3 views. No acute bony abnormalities. Joint spaces are intact. No significant knee effusion. Narrative Procedure Note Chuck Hua MD - 07/27/2023 IMPRESSION COMPARISON: None. FINDINGS: Right knee 3 views. No acute bony abnormalities. Joint spacesare intact. No significant knee effusion. Ricarda RANKIN GD documented in this encounter Visit Diagnoses Diagnosis Right knee pain, unspecified chronicity documented in this encounter Care Teams Hanger Relationship Specialty Start Date End Date Gabe Moreira MD [address] [place] [id number] PCP - General Single Pointed Operator 04/30/20 documented as of this encounter
--- NOTE | 2023-09-22 07:37 | PC.NURSE ---
Surgery packet started. Patient taken to [facility] room 11. Report given to odalys. Patient will notify significant other of room change. All belongings sent with patient.
[2023-09-22] MEDS: LACTATED RINGERS 1000 ML 1,000 ML 100 ML IV (07:45)
[2023-09-22] MEDS: SODIUM CHLORIDE 0.9 % (FLUSH) 10 ML SYRINGE IVF (07:45)
--- OUTSIDE RECORDS SUMMARY | 2023-09-22 07:48 | XMS_ITS | Encounter Summary ---
Author Name Unknown Organization [facility] Address [address] [place] [address] Care Team Providers Care Developmental Writing Instructor Name Role Phone Gabe Moreira MD Primary Care Provider + [phone] Reason for Referral * Therapies (Routine) - New Request Specialty Diagnoses / Procedures Referred By Balwinder huntley Referred To Contact Diagnoses Right knee pain, unspecified chronicity Ricarda Dempsey PA-C [address] [facility] [place] [address] Referral ID Status Reason Start Date Expiration Date V isits Requested Visits Authorized [id number] New Request 07/27/2023 07/26/2024 1 1 Scheduling Instructions Your clinician has recommended an appointment with [facility]. You can quickly make your appointment online at [email or web address]. You can also call [phone] for help scheduling your appointment. We suggest [...] other modalities as appropriate. Eval and treat. [facility] * Procedure/Equipment (Routine) - Incomplete Specialty Diagnoses / Procedures Referred By Balwinder huntley Referred To Contact Diagnoses Right knee pain, unspecified chronicity Procedures XR Knee Rt 3 Views Ricarda Dempsey PA-C [address] [facility] [place] [address] Referral ID Status Reason Start Date Expiration Date V isits Requested Visits Authorized [id number] Incomplete 07/27/2023 10/25/2024 1 1 [facility] Reason for Visit * Reason Comments CONSULT Right knee pain, rig ht ankle pain Encounter Details Date Type Department Care Team Description 07/27/2023 10:40 AM ASSEM[employer] Office Visit [facility] [address] [place] [address] Ricarda Dempsey PA-C [address] [facility] [place] [address] Iliotibial band syndrome of right side (Primary [...] Ricarda Dempsey PA-C - 07/27/2023 10:40 AM [employer] You can do all of this together: [...] NSAIDs when also on a blood thinner. [facility] documented in this encounter Progress Notes * [...] answered to his satifaction. Ricarda Dempsey PA-C [facility] documented in this encounter Plan of Treatment Scheduled Referrals Name Type Priority Associated Diagnoses Orde r Schedule Physical Therapy Referral Routine Iliotibial band syndrome of right side Ordered: 07/27/2023 documented as of this encounter Results * XR Knee Rt 3 Views (07/27/2023 11:27 AM [facility] [employer]) Anatomical Region Laterality Modality Lower Extremity, Knee Digital Ra diography 07/27/2023 11:2 0 AM [facility] Impressions 07/27/2023 1:52 PM [facility] COMPARISON: ??None. FINDINGS: ??Right knee 3 views. [...] chronicity documented in this encounter Care Teams Developmental Writing Instructor Relationship Specialty Start Date End Date Gabe Moreira MD [address] [place] [phone] PCP - General Computer Forensic Specialist 04/30/20 documented as of this encounter
--- OUTSIDE RECORDS SUMMARY | 2023-09-22 07:48 | XMS_ITS | Clinical Summary ---
Author Name Unknown Organization [facility] Address [address] [place] [address] Care Team Providers Care Draw String Knotter Name Role Phone Gabe Moreira MD Primary Care Provider + [phone] Source Comments You are receiving this document as you are listed as the primary care provider,follow-up provider, or the patient has been referred to you for consultation.This is in compliance with the Medicare and[facility] EHR Incentive Program,which states Providers who transition their patient to another setting of careor provider of care or refers their patient to another provider of care shouldprovide summary care record for each transition of care or referral. [facility] Allergies No known active allergies Medications Medication [...] Department Care Team Description 08/14/2023 3:00 PM AIR FORCE SENIOR OFFICER Lab Visit [facility] Laboratory [address], [address] [place] [address] CAREPLAN: CONTROLLED SUBSTANCE; Screening for diabetes mellitus (DM); Screening for cholesterol level 08/14/2023 2:20 PM AIR FORCE SENIOR OFFICER Office Visit [facility] Family Practice [address], [address] [place] [address] Gabe Moreira MD Routine health maintenance (Primary Dx); Major depressive disorder, recurrent, in remission, unspecified (HRC); PTSD (post-traumatic stress disorder) (HRC); Sleep disturbance; Attention deficit hyperactivity disorder (ADHD), unspecified ADHD type (HRC); CAREPLAN: CONTROLLED SUBSTANCE; Primary hypertension (HRC); Screening for cholesterol level; Screening for diabetes mellitus (DM); Encounter for immunization 08/13/2023 7:45 AM AIR FORCE SENIOR OFFICER Therapy [facility], Physical Therapy [address] [place] [address] Riya Dozier, PT Right knee pain, unspecified chronicity (Primary Dx); Right ankle pain, unspecified chronicity 07/27/2023 11:25 AM AIR FORCE SENIOR OFFICER Ancillary Procedure [facility] [address] [address] [address] [place] [address] Ricarda Dempsey PA-C Right knee pain, unspecified chronicity 07/27/2023 10:40 AM AIR FORCE SENIOR OFFICER Office Visit [facility] [address] [place] [phone] Ricarda Dempsey PA-C Iliotibial band syndrome of right side (Primary Dx) from Last 3 Months Immunizations Name Administration Dates Next Due 4vHPV (Gardasil) 11/12/2012,09/14/2012 9vHPV (Gardasil 9) 04/10/2017 Influenza (Flucelvax), Prese rv Free QIV 08/14/2023 Influenza IIV4 (Quadrivalent ) 0.5mL (72820) 07/25/2022,07/02/2020,10/21/2019, 018 MCV4 Tristen 2m.+ (two vial) [...] Comments Blood Pressure 128/85 08/14/2023 2:16 PM AIR FORCE SENIOR OFFICER Pulse 74 08/14/2023 2:16 PM AIR FORCE SENIOR OFFICER Temperature 36.8 ??C (98.2 ??F) 01/28/2022 9:12 AM CD T Respiratory Rate 12 01/28/2022 9:12 AM CDT Oxygen Saturation 97% 01/28/2022 9:12 AM CDT Inhaled Oxygen Concentration - - Weight 85.7 kg (189 lb) 08/14/2023 2:16 PM AIR FORCE SENIOR OFFICER Height 176.5 cm (5' 9.5) 08/14/2023 2:16 PM AIR FORCE SENIOR OFFICER Body Mass Index 27.51 08/14/2023 2:16 PM AIR FORCE SENIOR OFFICER Plan of Treatment Health Maintenance Due Date [...] PANEL (WITH CONFIRMATION) Routine 08/14/2023 3:02 PM AIR FORCE SENIOR OFFICER CAREPLAN: CONTROLLED SUBSTANCE RAPID PAIN MANAGEMENT PANEL URINE Routine 08/14/2023 3:02 PM AIR FORCE SENIOR OFFICER CAREPLAN: CONTROLLED SUBSTANCE LIPID PANEL & DIRECT LDL (IF NEEDED) Routine 08/14/2023 3:01 PM AIR FORCE SENIOR OFFICER Screening for cholesterol level HGB A1C Routine 08/14/2023 3:01 PM AIR FORCE SENIOR OFFICER Screening for diabetes mellitus (DM) XR KNEE RT 3 VIEWS Routine 07/27/2023 11 :27 AM AIR FORCE SENIOR OFFICER Right knee pain, unspecified chronicity from Last 3 Months Results * Rapid Pain Management Panel Urine without THC (08/14/2023 3:02 PM AIR FORCE SENIOR OFFICER) [facility] Amphetamines Screen Not Detected Not Detected 08/15/2023 8:41 AM [facility] Is patient prescribed amphetamines? Yes 08/15/2023 8:41 AM [facility] Barbiturates Screen Not Detected Not Detected 08/15/2023 8:41 AM [facility] Is patient prescribed barbiturates? No 08/15/2023 8:41 AM [facility] Benzodiazepines Screen Not Detected Not Detected 08/15/2023 8:41 AM [facility] Is patient prescribed benzodiazepine? No 08/15/2023 8:41 AM [facility] Buprenorphine Screen Not Detected Not Detected 08/15/2023 8:41 AM [facility] Is patient prescribed buprenorphine? No 08/15/2023 8:41 AM [facility] Cocaine Metabolite Screen Not Detected Not Detected 08/15/2023 8:41 AM [facility] Methadone Screen Not Detected Not Detected 08/15/2023 8:41 AM [facility] Is patient prescribed methadone? No 08/15/2023 8:41 AM [facility] Opiates Screen Not Detected Not Detected 08/15/2023 8:41 AM [facility] Is patient prescribed opiates? No 08/15/2023 8:41 AM [facility] Oxycodone Screen Not Detected Not Detected 08/15/2023 8:41 AM [facility] Is patient prescribed oxycodone? No 08/15/2023 8:41 AM AIR FORCE SENIOR OFFICER [facility] Is patient prescribed THC? No 08/15/2023 8:41 AM [facility] Phencyclidine (PCP) Screen Not Detected Not Detected 08/15/2023 8:41 AM [facility] Creatinine, Urine, Random 40 >20 mg/dL 08/15/2023 8:41 AM [facility] Urine Non-blood Collection / Unknown 08/14/2023 3:02 PM [facility] 08/14/2023 3:02 PM [facility] - 08/15/2023 8:41 AM [facility] The absence of expected drug(s) and/or [...] Gabe Moreira MD LAB_1 Performing Organization Address City/State/[facility] Co de Phone Number [address] [phone] [facility] [address] [place] [address], [facility] [phone] * (ABNORMAL) Urine Drug Comprehensive Panel (with Confirmation) (08/14/2023 3:02 PM [facility]) Wkeva-FL-Idixqohr am, urine Not Detected Not Detected 08/18/2023 1:13 PM [facility] Alprazolam, urine Not Detected Not Detected 01/2023 1:13 PM [facility] Amitryptyline, urine Not Detected Not Detected 08/18/2023 1:13 PM [facility] Amphetamine, urine Confirmed Positive(A) Not Detected 08/18/2023 1:13 PM [facility] Benzoylecgonine, urine Not Detected Not Detected 08/18/2023 1:13 PM [facility] Buprenorphine, urine Not Detected Not Detected 08/18/2023 1:13 PM [facility] Bupropion, urine Confirmed Positive(A) Not Detected 08/18/2023 1:13 PM [facility] Butalbital, urine Not Detected Not Detected 01/2023 1:13 PM [facility] Carisoprodol, urine Not Detected Not Detected 08/18/2023 1:13 PM [facility] Citalopram, urine Not Detected Not Detected 01/2023 1:13 PM [facility] Clomipromine, urine Not Detected Not Detected 08/18/2023 1:13 PM [facility] Clonazepam Metab 7-Aminoclonazepam , urine Not Detected Not Detected 08/18/2023 1:13 PM [facility] Clonazepam, urine Not Detected Not Detected 01/2023 1:13 PM [facility] Cocaine, urine Not Detected Not Detected 2022 1:13 PM [facility] Codeine, urine Not Detected Not Detected 2022 1:13 PM [facility] Cyclobenzaprine, urine Not Detected Not Detected 08/18/2023 1:13 PM [facility] Desipramine, urine Not Detected Not Detected 08/18/2023 1:13 PM [facility] Diazepam, urine Not Detected Not Detected 08/18 1:13 PM [facility] Doxepin, urine Not Detected Not Detected 2022 1:13 PM [facility] Ecstasy MDMA, urine Not Detected Not Detected 08/18/2023 1:13 PM [facility] Ecstasy Metab MDA, urine Not Detected Not Detected 08/18/2023 1:13 PM [facility] Fentanyl, urine Not Detected Not Detected 08/18 1:13 PM [facility] Fluoxetine, urine Not Detected Not Detected 01/2023 1:13 PM [facility] Gabapentin, urine Not Detected Not Detected 01/2023 1:13 PM [facility] Heroin Metab 6-acetylmorphine, urine Not Detected Not Detected 08/18/2023 1:13 PM [facility] Hydrocodone, urine Not Detected Not Detected 08/18/2023 1:13 PM [facility] Hydromorphone, urine Not Detected Not Detected 08/18/2023 1:13 PM [facility] Imipramine, urine Not Detected Not Detected 01/2023 1:13 PM [facility] Ketamine, urine Not Detected Not Detected 08/18 1:13 PM [facility] Lorazepam, urine Not Detected Not Detected 01/2023 1:13 PM [facility] Marijuana Metabolite, urine Confirmed Positive(A) Not Detected 08/18/2023 1:13 PM [facility] Meperidine, urine Not Detected Not Detected 01/2023 1:13 PM [facility] Meprobamate, urine Not Detected Not Detected 08/18/2023 1:13 PM [facility] Methadone Metab EDDP, urine Not Detected Not Detected 08/18/2023 1:13 PM [facility] Methadone, urine Not Detected Not Detected 01/2023 1:13 PM [facility] Methamphetamine, urine Not Detected Not Detected 08/18/2023 1:13 PM [facility] Methylphenidate, urine Not Detected Not Detected 08/18/2023 1:13 PM [facility] Mirtazapine, urine Not Detected Not Detected 08/18/2023 1:13 PM [facility] Morphine, urine Not Detected Not Detected 08/18 1:13 PM [facility] Norbuprenorphine, urine Not Detected Not Detected 08/18/2023 1:13 PM [facility] Nordiazepam, urine Not Detected Not Detected 08/18/2023 1:13 PM [facility] Desmethyldoxapine , urine Not Detected Not Detected 08/18/2023 1:13 PM [facility] Norfentanyl, urine Not Detected Not Detected 08/18/2023 1:13 PM [facility] Nortriptyline, urine Not Detected Not Detected 08/18/2023 1:13 PM [facility] O-desmethylvenlaf axine, urine Not Detected Not Detected 08/18/2023 1:13 PM [facility] Oxazepam, urine Not Detected Not Detected 08/18 1:13 PM [facility] Oxycodone, urine Not Detected Not Detected 01/2023 1:13 PM [facility] Oxymorphone, urine Not Detected Not Detected 08/18/2023 1:13 PM [facility] Paroxatine, urine Not Detected Not Detected 01/2023 1:13 PM [facility] Phencyclidine, urine Not Detected Not Detected 08/18/2023 1:13 PM [facility] Phenobarbital, urine Not Detected Not Detected 08/18/2023 1:13 PM [facility] Pregabalin, urine Not Detected Not Detected 01/2023 1:13 PM [facility] Quetiapine, urine Not Detected Not Detected 01/2023 1:13 PM [facility] Sertraline, urine Not Detected Not Detected 01/2023 1:13 PM [facility] Tapentadol, urine Not Detected Not Detected 01/2023 1:13 PM [facility] Temazepam, urine Not Detected Not Detected 01/2023 1:13 PM [facility] Tramadol, urine Not Detected Not Detected 08/18 1:13 PM [facility] Venlafaxine, urine Not Detected Not Detected 08/18/2023 1:13 PM [facility] Zolpidem, urine Not Detected Not Detected 08/18 1:13 PM [facility] Creatinine, Urine, Random 40 >20 mg/dL 08/18/2023 1:13 PM [facility] Medication Check Inconsistent with Med List(A) Consistent with Med List 08/18/2023 1:13 PM [facility] Patient Medication History Current Outpatient Medications Ordered in [facility]: amphetamine-de xtroamphetamin e (ADDERALL) 10 [...] MG tablet VITAMIN D OR No current [facility]-ordered facility-admin istered medications on file. 08/18/2023 1:13 PM [facility] Medication Interpretation Not prescribed and detected: Cannabis detected as THC metabolite Prescribed and not detected: Mirtazapine prescribed and not detected Prescribed and detected: Amphetamine prescribed and detected Bupropion prescribed and detected 08/18/2023 1:13 PM AIR FORCE SENIOR OFFICER [facility] Urine Non-blood Collection / Unknown 08/14/2023 3:02 PM AIR FORCE SENIOR OFFICER 08/14/2023 3:02 PM AIR FORCE SENIOR OFFICER Narrative [facility] - 08/18/2023 1:13 PM AIR FORCE SENIOR OFFICER The absence of expected drug(s) and/or drug [...] developed and its performance characteristics validated by [facility]. It has not been cleared nor approved by the FDA. Gabe Moreira MD LAB_1 [place] [address], [facility] [phone] * (ABNORMAL) Lipid Panel & Direct LDL (if Needed) (08/14/2023 3:01 PM AIR FORCE SENIOR OFFICER) Cholesterol 159 0 - 199 mg/dL 08/14/2023 7:34 PM [facility] Triglyceride 154(H) <=149 mg/dL 08/14/2023 7:34 PM [facility] HDL Cholesterol 56 >=40 mg/dL 08/14/2023 7:34 PM [facility] LDL, Calculated 72 <130 mg/dL 08/14/2023 7:34 PM [facility] Non HDL Chol, Calculated 103 <=159 mg/dL 08/14/2023 7:34 PM [facility] Cholesterol/HDL Ratio 2.8 <=5.0 08/14/2023 7:34 PM [facility] Hours Fasting 0.1 8 - 12 Hours 08/14/2023 7:34 PM [facility] Blood Venipuncture / Unknown 08/14/2023 3:01 PM AIR FORCE SENIOR OFFICER 08/14/2023 3:01 PM AIR FORCE SENIOR OFFICER Gabe Moreira MD LAB_1 Performing Organization Address [facility] de Phone Number [facility] [address] [phone] * Hgb A1C (08/14/2023 3:01 PM AIR FORCE SENIOR OFFICER) Hemoglobin A1C 4.6 <=5.6 % 08/14/2023 9:50 PM AIR FORCE SENIOR OFFICER [facility] Estimated Average Glucose (Calc) 85 < 117 mg/dL 08/14/2023 9:50 PM [facility] Comment:Estimated average gl ucose (eAG) converts A1c into glucose units (mg/dL) and estimates average glucose over the past approximately 3 months. The eAG reference interval (<117 mg/dL) corresponds to an A1c of <5.7%. Blood Venipuncture / Unknown 08/14/2023 3:01 PM AIR FORCE SENIOR OFFICER 08/14/2023 3:01 PM AIR FORCE SENIOR OFFICER Gabe Moreira MD LAB_1 Performing Organization Address [facility] de Phone Number [facility] [address] [phone] * XR Knee Rt 3 Views (07/27/2023 11:27 AM AIR FORCE SENIOR OFFICER) Anatomical Region Laterality Modality Lower Extremity, Knee Digital Ra diography 07/27/2023 11:2 0 AM AIR FORCE SENIOR OFFICER Impressions 07/27/2023 1:52 PM AIR FORCE SENIOR OFFICER COMPARISON: ??None. FINDINGS: ??Right knee 3 views. No acute bony abnormalities. Joint spaces are intact. No significant knee effusion. Narrative Procedure Note Chuck Hua MD - 07/27/2023 IMPRESSION COMPARISON: None. FINDINGS: Right knee 3 views. No acute bony abnormalities. Joint spacesare intact. No significant knee effusion. Ricarda RANKIN GD from Last 3 Months Care Teams Draw String Knotter Relationship Specialty Start Date End Date Gabe Moreira MD [address] [place] [id number] PCP - General Physical Science Technician 04/30/20
--- OUTSIDE RECORDS SUMMARY | 2023-09-22 07:48 | XMS_ITS | Encounter Summary ---
Author Name Unknown [facility] Address [address] [place] [address] Care Team Providers Care Facility Worker Name Role Phone Gabe Moreira MD Primary Care Provider + [phone] Reason for Referral * Procedure/Equipment (Routine) - Authorized Specialty Diagnoses / Procedures Referred By Contac t Referred To Contact Diagnoses Sleep disturbances Gabe Moreira MD [address] [place] [address] Referral ID Status Reason Start Date Expiration Date V isits Requested Visits Authorized [id number] Authorized 04/26/2023 07/25/2024 1 1 Scheduling Instructions [...] information for the site where you will diamond picker your device is as follows: [facility] [address] [place] [id number] (option 2) [email or web address] 1. You will be scheduled for a visit to the sleep center to diamond picker via a curbside process. Please allow [...] additional questions, please visit our website at [email or web address] and review the information there. Question Answer [...] Type Department Care Team Description 04/26/2023 Notes/Orders [facility] [address], [address] [place], [place] [id number] Gabe Moreira MD [address] [place] [address] Sleep disturbances (Primary Dx) Social [...] unspecified documented in this encounter Care Teams Facility Worker Relationship Specialty Start Date End Date Gabe Moreira MD [address] [place] [id number] PCP - General Public Health Educator 04/30/20 documented as of this encounter
--- OUTSIDE RECORDS SUMMARY | 2023-09-22 07:48 | XMS_ITS | Encounter Summary ---
Author Name Unknown Organization [facility] Address [address] [address] Care Team Providers Care Chemist Physical Name Role Phone Gabe Moreira MD Primary Care Provider + [phone] Reason for Visit * Reason Comments Knee Problem * Therapies (Routine) - New Request Specialty Diagnoses / Procedures Referred By Balwinder huntley Referred To Contact Diagnoses Right knee pain, unspecified chronicity Ricarda Dempsey, PA-C [address] [facility] [place] [address] Referral ID Status Reason Start Date Expiration Date V isits Requested Visits Authorized [id number] New Request 07/27/2023 07/26/2024 1 1 Encounter Details Date Type Department Care Team Description 08/13/2023 7:45 AM BOX FINISHER Therapy [facility], Physical Therapy [address] [place], [place] [phone] Riya Dozier, PT [address] [place] [address] Right knee pain, unspecified chronicity (Primary Dx); [...] on/off. 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 Last episode was 5 years ago, resolved [...] is a work related injury. 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 Enjoys working out 4 days/week. Method of [...] oriented. Observation/Gait: WNL Edema: Not performed ROM (vykukxyen-hja-hutc): Knee ROM full and painfree Hip ROM [...] ankle TREATMENT TODAY: Physical Therapy Evaluation (CPT 49182): An evaluation was performed. The patient was determined tohave low complexity based on history, examination, clinical presentation of the patient and the PT's clinical decision making. The patient was educated on the condition, planned therapy intervention and expectations from treatment. Goals were a collaborative effort of the therapist and patient. Therapeutic Exercise (CPT 89077) x 30 minutes: Access Code: [email or web address] Exercises - Side Stepping with Resistance at [...] Riya Dozier, PT 6:37 AM 08/13/2023 The supervisor forming department is completed by the therapist and the referring clinician's electronic signature certifies medical necessity for the plan above. FINISHER documented in this encounter Plan of Treatment Scheduled Referrals Name Type Priority Associated Diagnoses Orde r Schedule Physical Therapy Referral Routine Iliotibial band syndrome of right side Ordered: 07/27/2023 documented as of this encounter Visit Diagnoses Diagnosis Right knee pain, unspecified chronicity- Primary Right ankle pain, unspecified chronicity documented in this encounter Care Teams Chemist Physical Relationship Specialty Start Date End Date Gabe Moreira MD [address] [place] [id number] PCP - General Edge Baster 04/30/20 documented as of this encounter
--- OUTSIDE RECORDS SUMMARY | 2023-09-22 07:48 | XMS_ITS | Encounter Summary ---
Author Name Unknown Organization [facility] Address [address] [facility] [place] [address] Care Team Providers Care Decorating Machine Operator Name Role Phone Gabe Moreira MD Primary Care Provider + [phone] Reason for Visit * Procedure/Equipment (Routine) - Incomplete Specialty Diagnoses / Procedures Referred By Balwinder t Referred To Contact Diagnoses Right knee pain, unspecified chronicity Procedures XR Knee Rt 3 Views Ricarda Dempsey PA-C [address] [place] [address] Referral ID Status Reason Start Date Expiration Date V isits Requested Visits Authorized [id number] Incomplete 07/27/2023 10/25/2024 1 1 Encounter Details Date Type Department Care Team Description 07/27/2023 11:25 AM STROBOROMA OPERATOR Ancillary Procedure [facility] [address] Radiology [address] [place] [address] Ricarda Dempsey PA-C [address] [place] [id number] Right knee pain, unspecified chronicity Social History [...] 3 VIEWS Routine 07/27/2023 11 :27 AM STROBOROMA OPERATOR Right knee pain, unspecified chronicity documented in this encounter Results * XR Knee Rt 3 Views (07/27/2023 11:27 AM STROBOROMA OPERATOR) Anatomical Region Laterality Modality Lower Extremity, Knee Digital Ra diography 07/27/2023 11:2 0 AM STROBOROMA OPERATOR Impressions 07/27/2023 1:52 PM STROBOROMA OPERATOR COMPARISON: ??None. FINDINGS: ??Right knee 3 views. [...] chronicity documented in this encounter Care Teams Decorating Machine Operator Relationship Specialty Start Date End Date Gabe Moreira MD [address] [place] [id number] PCP - General Health Therapist 04/30/20 documented as of this encounter
--- OUTSIDE RECORDS SUMMARY | 2023-09-22 07:48 | XMS_ITS | Encounter Summary ---
Author Name Unknown Organization On license of [facility] Address [address], [place] [address] Care Team Providers Care Bdr Name Role Phone Gabe Moreira MD Primary Care Provider + [phone] Reason for Visit * Reason Comments ROUTINE HEALTH MAINTENANCE Encounter Details Date Type Department Care Team Description 08/14/2023 2:20 PM BIOLOGICAL SCIENCES INSTRUCTOR Office Visit [facility] [address], [address] [place] [address] Gabe Moreira MD [address] [place] [address] Routine health maintenance (Primary Dx); [...] Comments Blood Pressure 128/85 08/14/2023 2:16 PM BIOLOGICAL SCIENCES INSTRUCTOR Pulse 74 08/14/2023 2:16 PM BIOLOGICAL SCIENCES INSTRUCTOR Temperature - - Respiratory Rate - - Oxygen Saturation - - Inhaled Oxygen Concentration - - Weight 85.7 kg (189 lb) 08/14/2023 2:16 PM BIOLOGICAL SCIENCES INSTRUCTOR Height 176.5 cm (5' 9.5) 08/14/2023 2:16 PM BIOLOGICAL SCIENCES INSTRUCTOR Body Mass Index 27.51 08/14/2023 2:16 PM BIOLOGICAL SCIENCES INSTRUCTOR documented in this encounter Patient Instructions * Patient Instructions* Adilia Ramos CMA - 08/14/2023 2:20 PM BIOLOGICAL SCIENCES INSTRUCTOR Images from the original note were not [...] can you learn more? 1. Go to [email or web address] Point. 2. Enter P072 in the search box. Current as of: April 19, 2023?Content Version: 13.9 ?? [employer]. Care instructions adapted under license by your healthcare professional. If you have questions about a medical condition or this instruction, always ask your healthcare professional. [employer] disclaims any warranty or liability for your use of this information. OGICAL SCIENCES INSTRUCTOR documented in this encounter Progress Notes * [...] -stress management -recommended immunizations Gabe Moreira MD OGICAL SCIENCES INSTRUCTOR documented in this encounter Plan of Treatment Not on file documented as of this encounter Results * Rapid Pain Management Panel Urine without THC (08/14/2023 3:02 PM BIOLOGICAL SCIENCES INSTRUCTOR) Amphetamines Screen Not Detected Not Detected 08/15/2023 8:41 AM [facility] Is patient prescribed amphetamines? Yes 08/15/2023 8:41 AM [facility] Barbiturates Screen Not Detected Not Detected 08/15/2023 8:41 AM [facility] Is patient prescribed barbiturates? No 08/15/2023 8:41 AM [facility] Benzodiazepines Screen Not Detected Not Detected 08/15/2023 8:41 AM [facility] Is patient prescribed benzodiazepine? No 08/15/2023 8:41 AM [facility] Buprenorphine Screen Not Detected Not Detected 08/15/2023 8:41 AM [facility] Is patient prescribed buprenorphine? No 08/15/2023 8:41 AM [facility] Cocaine Metabolite Screen Not Detected Not Detected 08/15/2023 8:41 AM [facility] Methadone Screen Not Detected Not Detected 08/15/2023 8:41 AM [facility] Is patient prescribed methadone? No 08/15/2023 8:41 AM [facility] Opiates Screen Not Detected Not Detected 08/15/2023 8:41 AM [facility] Is patient prescribed opiates? No 08/15/2023 8:41 AM [facility] Oxycodone Screen Not Detected Not Detected 08/15/2023 8:41 AM [facility] Is patient prescribed oxycodone? No 08/15/2023 8:41 AM [facility] Is patient prescribed THC? No 08/15/2023 8:41 AM [facility] Phencyclidine (PCP) Screen Not Detected Not Detected 08/15/2023 8:41 AM [facility] Creatinine, Urine, Random 40 >20 mg/dL 08/15/2023 8:41 AM [facility] Urine Non-blood Collection / Unknown 08/14/2023 3:02 PM BIOLOGICAL SCIENCES INSTRUCTOR 08/14/2023 3:02 PM [facility] - 08/15/2023 8:41 AM [facility] The absence of expected drug(s) and/or drug metabolite(s) may indicate non-compliance, inappropriate timing of specimen collection relative to drug administration, poor drug absorption, diluted/adulterated urine or limitations of testing. The concentration must be greater than or equal to the cutoff concentration to be reported as positive. For medical purposes only: not valid for forensic, legal, or employment use. Gabe Moreira MD LAB_[address] [place] [address], [facility] [phone] [facility] [address] [place] [address], [facility] [phone] * (ABNORMAL) Urine Drug Comprehensive Panel (with Confirmation) (08/14/2023 3:02 PM [facility]) Launp-EL-Rlugqkuh am, urine Not Detected Not Detected 08/18/2023 1:13 PM [facility] Alprazolam, urine Not Detected Not Detected 01/2023 1:13 PM [facility] Amitryptyline, urine Not Detected Not Detected 08/18/2023 1:13 PM [facility] Amphetamine, urine Confirmed Positive(A) Not Detected 08/18/2023 1:13 PM [facility] Benzoylecgonine, urine Not Detected Not Detected 08/18/2023 1:13 PM [facility] Buprenorphine, urine Not Detected Not Detected 08/18/2023 1:13 PM [facility] Bupropion, urine Confirmed Positive(A) Not Detected 08/18/2023 1:13 PM [facility] Butalbital, urine Not Detected Not Detected 01/2023 1:13 PM [facility] Carisoprodol, urine Not Detected Not Detected 08/18/2023 1:13 PM [facility] Citalopram, urine Not Detected Not Detected 01/2023 1:13 PM [facility] Clomipromine, urine Not Detected Not Detected 08/18/2023 1:13 PM [facility] Clonazepam Metab 7-Aminoclonazepam , urine Not Detected Not Detected 08/18/2023 1:13 PM [facility] Clonazepam, urine Not Detected Not Detected 01/2023 1:13 PM [facility] Cocaine, urine Not Detected Not Detected 2022 1:13 PM [facility] Codeine, urine Not Detected Not Detected 2022 1:13 PM [facility] Cyclobenzaprine, urine Not Detected Not Detected 08/18/2023 1:13 PM [facility] Desipramine, urine Not Detected Not Detected 08/18/2023 1:13 PM [facility] Diazepam, urine Not Detected Not Detected 08/18 1:13 PM [facility] Doxepin, urine Not Detected Not Detected 2022 1:13 PM [facility] Ecstasy MDMA, urine Not Detected Not Detected 08/18/2023 1:13 PM [facility] Ecstasy Metab MDA, urine Not Detected Not Detected 08/18/2023 1:13 PM [facility] Fentanyl, urine Not Detected Not Detected 08/18 1:13 PM [facility] Fluoxetine, urine Not Detected Not Detected 01/2023 1:13 PM [facility] Gabapentin, urine Not Detected Not Detected 01/2023 1:13 PM [facility] Heroin Metab 6-acetylmorphine, urine Not Detected Not Detected 08/18/2023 1:13 PM [facility] Hydrocodone, urine Not Detected Not Detected 08/18/2023 1:13 PM [facility] Hydromorphone, urine Not Detected Not Detected 08/18/2023 1:13 PM [facility] Imipramine, urine Not Detected Not Detected 01/2023 1:13 PM [facility] Ketamine, urine Not Detected Not Detected 08/18 1:13 PM [facility] Lorazepam, urine Not Detected Not Detected 01/2023 1:13 PM [facility] Marijuana Metabolite, urine Confirmed Positive(A) Not Detected 08/18/2023 1:13 PM [facility] Meperidine, urine Not Detected Not Detected 01/2023 1:13 PM [facility] Meprobamate, urine Not Detected Not Detected 08/18/2023 1:13 PM [facility] Methadone Metab EDDP, urine Not Detected Not Detected 08/18/2023 1:13 PM [facility] Methadone, urine Not Detected Not Detected 01/2023 1:13 PM [facility] Methamphetamine, urine Not Detected Not Detected 08/18/2023 1:13 PM [facility] Methylphenidate, urine Not Detected Not Detected 08/18/2023 1:13 PM [facility] Mirtazapine, urine Not Detected Not Detected 08/18/2023 1:13 PM [facility] Morphine, urine Not Detected Not Detected 08/18 1:13 PM [facility] Norbuprenorphine, urine Not Detected Not Detected 08/18/2023 1:13 PM [facility] Nordiazepam, urine Not Detected Not Detected 08/18/2023 1:13 PM [facility] Desmethyldoxapine , urine Not Detected Not Detected 08/18/2023 1:13 PM [facility] Norfentanyl, urine Not Detected Not Detected 08/18/2023 1:13 PM [facility] Nortriptyline, urine Not Detected Not Detected 08/18/2023 1:13 PM [facility] O-desmethylvenlaf axine, urine Not Detected Not Detected 08/18/2023 1:13 PM [facility] Oxazepam, urine Not Detected Not Detected 08/18 1:13 PM [facility] Oxycodone, urine Not Detected Not Detected 01/2023 1:13 PM [facility] Oxymorphone, urine Not Detected Not Detected 08/18/2023 1:13 PM [facility] Paroxatine, urine Not Detected Not Detected 01/2023 1:13 PM [facility] Phencyclidine, urine Not Detected Not Detected 08/18/2023 1:13 PM [facility] Phenobarbital, urine Not Detected Not Detected 08/18/2023 1:13 PM [facility] Pregabalin, urine Not Detected Not Detected 01/2023 1:13 PM [facility] Quetiapine, urine Not Detected Not Detected 01/2023 1:13 PM [facility] Sertraline, urine Not Detected Not Detected 01/2023 1:13 PM [facility] Tapentadol, urine Not Detected Not Detected 01/2023 1:13 PM [facility] Temazepam, urine Not Detected Not Detected 01/2023 1:13 PM [facility] Tramadol, urine Not Detected Not Detected 08/18 1:13 PM [facility] Venlafaxine, urine Not Detected Not Detected 08/18/2023 1:13 PM [facility] Zolpidem, urine Not Detected Not Detected 08/18 1:13 PM [facility] Creatinine, Urine, Random 40 >20 mg/dL 08/18/2023 1:13 PM [facility] Medication Check Inconsistent with Med List(A) Consistent with Med List 08/18/2023 1:13 PM [facility] Patient Medication History Current Outpatient Medications Ordered in [facility]: amphetamine-de xtroamphetamin e (ADDERALL) 10 [...] MG tablet VITAMIN D OR No current [facility]-ordered facility-admin istered medications on file. 08/18/2023 1:13 PM [facility] Medication Interpretation Not prescribed and detected: Cannabis detected as THC metabolite Prescribed and not detected: Mirtazapine prescribed and not detected Prescribed and detected: Amphetamine prescribed and detected Bupropion prescribed and detected 08/18/2023 1:13 PM [facility] Urine Non-blood Collection / Unknown 08/14/2023 3:02 PM BIOLOGICAL SCIENCES INSTRUCTOR 08/14/2023 3:02 PM BIOLOGICAL SCIENCES INSTRUCTOR [facility] - 08/18/2023 1:13 PM BIOLOGICAL SCIENCES INSTRUCTOR The absence of expected drug(s) and/or drug [...] developed and its performance characteristics validated by [facility]. It has not been cleared nor approved by the FDA. Gabe Moreira MD LAB_[address] [phone] * (ABNORMAL) Lipid Panel & Direct LDL (if Needed) (08/14/2023 3:01 PM BIOLOGICAL SCIENCES INSTRUCTOR) Cholesterol 159 0 - 199 mg/dL 08/14/2023 7:34 PM [facility] Triglyceride 154(H) <=149 mg/dL 08/14/2023 7:34 PM [facility] HDL Cholesterol 56 >=40 mg/dL 08/14/2023 7:34 PM [facility] LDL, Calculated 72 <130 mg/dL 08/14/2023 7:34 PM [facility] Non HDL Chol, Calculated 103 <=159 mg/dL 08/14/2023 7:34 PM [facility] Cholesterol/HDL Ratio 2.8 <=5.0 08/14/2023 7:34 PM [facility] Hours Fasting 0.1 8 - 12 Hours 08/14/2023 7:34 PM [facility] Blood Venipuncture / Unknown 08/14/2023 3:01 PM BIOLOGICAL SCIENCES INSTRUCTOR 08/14/2023 3:01 PM BIOLOGICAL SCIENCES INSTRUCTOR Gabe Moreira MD LAB_1 Performing Organization Address [facility] de Phone Number [facility] [address] [place] [address] * Hgb A1C (08/14/2023 3:01 PM BIOLOGICAL SCIENCES INSTRUCTOR) Hemoglobin A1C 4.6 <=5.6 % 08/14/2023 9:50 PM BIOLOGICAL SCIENCES INSTRUCTOR [facility] Estimated Average Glucose (Calc) 85 < 117 mg/dL 08/14/2023 9:50 PM [facility] Comment:Estimated average gl ucose (eAG) converts A1c into glucose units (mg/dL) and estimates average glucose over the past approximately 3 months. The eAG reference interval (<117 mg/dL) corresponds to an A1c of <5.7%. Blood Venipuncture / Unknown 08/14/2023 3:01 PM BIOLOGICAL SCIENCES INSTRUCTOR 08/14/2023 3:01 PM BIOLOGICAL SCIENCES INSTRUCTOR Gabe Moreira MD LAB_1 Performing Organization Address [facility] Co de Phone Number [place] [id number] [address] [phone] documented in this encounter Visit Diagnoses Diagnosis [...] disease documented in this encounter Care Teams Bdr Relationship Specialty Start Date End Date Gabe Moreira MD [address] [place] [id number] PCP - General Cooker Meal 04/30/20 documented as of this encounter
--- OUTSIDE RECORDS SUMMARY | 2023-09-22 07:48 | XMS_ITS | Encounter Summary ---
Author Name Unknown Organization [facility] Address [address] [place] [address] Care Team Providers Care Room Cooler Installer Name Role Phone Gabe Moreira MD Primary Care Provider + [phone] Encounter Details Date Type Department Care Team Description 08/14/2023 3:00 PM MONITOR CAR OPERATOR Lab Visit [facility] [address] [place] [address] CAREPLAN: CONTROLLED SUBSTANCE; Screening for diabetes mellitus [...] MANAGEMENT PANEL URINE Routine 08/14/2023 3:02 PM MONITOR CAR OPERATOR CAREPLAN: CONTROLLED SUBSTANCE URINE DRUG COMPREHENSIVE PANEL (WITH CONFIRMATION) Routine 08/14/2023 3:02 PM MONITOR CAR OPERATOR CAREPLAN: CONTROLLED SUBSTANCE LIPID PANEL & DIRECT LDL (IF NEEDED) Routine 08/14/2023 3:01 PM MONITOR CAR OPERATOR Screening for cholesterol level HGB A1C Routine 08/14/2023 3:01 PM MONITOR CAR OPERATOR Screening for diabetes mellitus (DM) documented in this encounter Results * (ABNORMAL) Urine Drug Comprehensive Panel (with Confirmation) (08/14/2023 3:02 PM MONITOR CAR OPERATOR) [facility] Lqchv-KB-Zzzhmagn am, urine Not Detected Not Detected 08/18/2023 [...] Medication History Current Outpatient Medications Ordered in [facility]: amphetamine-de xtroamphetamin e (ADDERALL) 10 MG [...] MG tablet VITAMIN D OR No current [facility]-ordered facility-admin istered medications on file. 08/18/2023 1:13 PM [facility] Medication Interpretation Not prescribed and detected: Cannabis detected as THC metabolite Prescribed and not detected: Mirtazapine prescribed and not detected Prescribed and detected: Amphetamine prescribed and detected Bupropion prescribed and detected 08/18/2023 1:13 PM [facility] Urine Non-blood Collection / Unknown 08/14/2023 3:02 PM MONITOR CAR OPERATOR 08/14/2023 3:02 PM [facility] - 08/18/2023 1:13 PM [facility] The absence of expected drug(s) and/or [...] developed and its performance characteristics validated by [facility]. It has not been cleared nor approved by the FDA. Gabe Moreira MD LAB_[address] [address], [facility] [phone] * Rapid Pain Management Panel Urine without THC (08/14/2023 3:02 PM MONITOR CAR OPERATOR) Amphetamines Screen Not Detected Not Detected 08/15/2023 8:41 AM [facility] Is patient prescribed amphetamines? Yes 08/15/2023 8:41 AM [facility] Barbiturates Screen Not Detected Not Detected 08/15/2023 8:41 AM [facility] Is patient prescribed barbiturates? No 08/15/2023 8:41 AM [facility] Benzodiazepines Screen Not Detected Not Detected 08/15/2023 8:41 AM [facility] Is patient prescribed benzodiazepine? No 08/15/2023 8:41 AM [facility] Buprenorphine Screen Not Detected Not Detected 08/15/2023 8:41 AM [facility] Is patient prescribed buprenorphine? No 08/15/2023 8:41 AM [facility] Cocaine Metabolite Screen Not Detected Not Detected 08/15/2023 8:41 AM [facility] Methadone Screen Not Detected Not Detected 08/15/2023 8:41 AM [facility] Is patient prescribed methadone? No 08/15/2023 8:41 AM [facility] Opiates Screen Not Detected Not Detected 08/15/2023 8:41 AM [facility] Is patient prescribed opiates? No 08/15/2023 8:41 AM [facility] Oxycodone Screen Not Detected Not Detected 08/15/2023 8:41 AM [facility] Is patient prescribed oxycodone? No 08/15/2023 8:41 AM [facility] Is patient prescribed THC? No 08/15/2023 8:41 AM [facility] Phencyclidine (PCP) Screen Not Detected Not Detected 08/15/2023 8:41 AM [facility] Creatinine, Urine, Random 40 >20 mg/dL 08/15/2023 8:41 AM [facility] Urine Non-blood Collection / Unknown 08/14/2023 3:02 PM MONITOR CAR OPERATOR 08/14/2023 3:02 PM MONITOR CAR OPERATOR Narrative [facility] - 08/15/2023 8:41 AM MONITOR CAR OPERATOR The absence of expected drug(s) and/or drug metabolite(s) may indicate non-compliance, inappropriate timing of specimen collection relative to drug administration, poor drug absorption, diluted/adulterated urine or limitations of testing. The concentration must be greater than or equal to the cutoff concentration to be reported as positive. For medical purposes only: not valid for forensic, legal, or employment use. Gabe Moreira MD LAB_[address] [address], [facility] [phone] [facility] [address] [place] [address], [facility] [phone] * (ABNORMAL) Lipid Panel & Direct LDL (if Needed) (08/14/2023 3:01 PM MONITOR CAR OPERATOR) Cholesterol 159 0 - 199 mg/dL 08/14/2023 7:34 PM [facility] [facility] [employer] CENTRAL LAB Triglyceride 154(H) <=149 mg/dL 08/14/2023 7:34 PM [facility] [facility] [employer] CENTRAL LAB HDL Cholesterol 56 >=40 mg/dL 08/14/2023 7:34 PM [facility] [facility] [employer] CENTRAL LAB LDL, Calculated 72 <130 mg/dL 08/14/2023 7:34 PM [facility] [facility] [employer] CENTRAL LAB Non HDL Chol, Calculated 103 <=159 mg/dL 08/14/2023 7:34 PM [facility] [facility] [employer] CENTRAL LAB Cholesterol/HDL Ratio 2.8 <=5.0 08/14/2023 7:34 PM [facility] [facility] [employer] CENTRAL LAB Hours Fasting 0.1 8 - 12 Hours 08/14/2023 7:34 PM [facility] [facility] [employer] CENTRAL LAB Blood Venipuncture / Unknown 08/14/2023 3:01 PM MONITOR CAR OPERATOR 08/14/2023 3:01 PM MONITOR CAR OPERATOR Gabe Moreira MD LAB_1 Performing Organization Address [facility] de Phone Number [facility] [employer] [facility] [address] [phone] * Hgb A1C (08/14/2023 3:01 PM MONITOR CAR OPERATOR) Hemoglobin A1C 4.6 <=5.6 % 08/14/2023 9:50 PM [facility] Estimated Average Glucose (Calc) 85 < 117 mg/dL 08/14/2023 9:50 PM [facility] Comment:Estimated average gl ucose (eAG) converts A1c into glucose units (mg/dL) and estimates average glucose over the past approximately 3 months. The eAG reference interval (<117 mg/dL) corresponds to an A1c of <5.7%. Blood Venipuncture / Unknown 08/14/2023 3:01 PM MONITOR CAR OPERATOR 08/14/2023 3:01 PM MONITOR CAR OPERATOR Gabe Moreira MD LAB_[address] Performing Organization [address] [facility] de Phone Number [facility] [address] [phone] documented in this encounter Visit Diagnoses Diagnosis CAREPLAN: CONTROLLED SUBSTANCE HP Custom HP Custom Screening for diabetes mellitus (DM) Screening for diabetes mellitus Screening for cholesterol level Screening for lipoid disorders documented in this encounter Care Teams Room Cooler Installer Relationship Specialty Start Date End Date Gabe Moreira MD [address] [place] [phone] PCP - General Skin Pass Operator 04/30/20 documented as of this encounter
--- OUTSIDE RECORDS SUMMARY | 2023-09-22 07:49 | XMS_ITS | Encounter Summary ---
Author Name Unknown Organization [facility] Address [address] [place] [address] Care Team Providers Care Diesel Locomotive Crane Operator Name Role Phone Gabe Moreira MD Primary Care Provider [phone] Reason for Visit * Reason Comments Depression Registry Call 2 Encounter Details Date Type Department Care Team Description 03/09/2023 Telephone [facility] [address], [address] [place] [address] Gabe Moreira MD [address] [place] [address] Depression Registry Call 2 Social [...] on filedocumented in this encounter Care Teams Diesel Locomotive Crane Operator Relationship Specialty Start Date End Date Gabe Moreira MD [address] [place] [id number] PCP - General Wraparound Facilitator 04/30/20 documented as of this encounter
--- OUTSIDE RECORDS SUMMARY | 2023-09-22 07:49 | XMS_ITS | Encounter Summary ---
Author Name Unknown Organization [facility] Address [address] [address] Care Team Providers Care Surveillance Camera Technician Name Role Phone Gabe Moreira MD Primary Care Provider + [phone] Reason for Referral * Consult/Transfer Care (Routine) - Closed Specialty Diagnoses / Procedures Referred By Balwinder t Referred To Contact Diagnoses Poor sleep pattern Gabe Moreira MD [address] [place] [address] Referral ID Status Reason Start Date Expiration Date Visits Re quested Visits Authorized [id number] Closed 04/24/2023 07/23/2024 1 1 Scheduling Instructions [...] your insurance requirements, personal health history, and [employer] guidelines. This sleep services referral will be reviewed within two (2) business days and sent to the appropriate department for scheduling of the recommended appointment. If you do not hear from us within the next two (2) weeks, please contact us to help with triaging of your order: [facility]- [phone] Question Answer Appointment Urgency Non-Urgent Sleep Service [...] Description 04/24/2023 2:00 PM CDT Office Visit [facility] [address], [address] [place] [address] Gabe Moreira MD [address] [place] [address] Poor sleep pattern (Primary Dx); Sleep disturbance; [...] well. Lots of nightmares. Is seeing a regulatory specialist in [place], who is managing his meds for this [...] newly diagnosed with adult ADHD by this INTERACTIVE MEDIA MARKETING STRATEGIST. Has been doing well on 10 mg [...] He can follow with me or his INTERACTIVE MEDIA MARKETING STRATEGIST for this. He will continue to follow with his INTERACTIVE MEDIA MARKETING STRATEGIST Adderall management. Despite struggling with nightmares, he [...] resulting in unintentional word substitutions or other auto customize painter errors. Please contact me if clarification is [...] Treponema Screen (04/24/2023 3:02 PM CDT) Pathologist [facility] Treponema Screen Result 0.030 {s_co_ratio } 04/24/2023 11:21 PM CDT [facility] Treponema Screen Interpretation Non Reactive Non Reactive 04/24/2023 11:21 PM CDT [facility] Blood Venipuncture / Unknown 04/24/2023 3:02 PM CDT 04/24/2023 3:02 PM CDT Gabe Moreira MD LAB_1 [facility] [address] * HIV 1/2 Ag/Ab 4th Generation (04/24/2023 3:02 PM CDT) Pathologist [facility] HIV 1/2 Antigen/Anti body (4th generation) Negative (Non Reactive) Negative (Non Reactive) 04/24/2023 7:51 PM CDT [facility] Comment:HIV-1 p24 Antigen an d HIV-1/HIV-2 Antibody not detected Blood Venipuncture / Unknown 04/24/2023 3:02 PM CDT 04/24/2023 3:02 PM CDT Gabe Moreira MD LAB_1 [facility] [id number] [place] [address] * Chlamydia & GC (14 Years and Older): Rectum (04/24/2023 2:43 PM CDT) Pathologist [facility] Chlamydia Trachomatis STD Not Detected Not Detected 04/24/2023 11:41 PM CDT [facility] N. gonorrhoeae STD Not Detected Not Detected 04/24/2023 11:41 PM CDT [facility] Swab STD RECTAL SWAB / Unknown Non-blood Collection / Unknown 04/24/2023 2:43 PM CDT 04/24/2023 3:54 PM CDT [facility] - 04/24/2023 11:41 PM CDT Test performed by Mining Captain Mediated Amplification (TMA). Gabe Moreira MD LAB_1 Performing Organization Address [facility] de Phone Number [facility] [address] [place] [address], [facility] [phone] * Chlamydia & GC (14 Years and Older): Throat (04/24/2023 2:43 PM CDT) Pathologist [facility] Chlamydia Trachomatis STD Not Detected Not Detected 04/24/2023 11:46 PM CDT [facility] N. gonorrhoeae STD Not Detected Not Detected 04/24/2023 11:46 PM CDT [facility] Swab STD THROAT SWAB / Unknown Non-blood Collection / Unknown 04/24/2023 2:43 PM CDT 04/24/2023 3:54 PM CDT [facility] - 04/24/2023 11:46 PM CDT Test performed by Mining Captain Mediated Amplification (TMA). Gabe Moreira MD LAB_1 Performing Organization Address [facility] de Phone Number [facility] [address] [place] [address] * Chlamydia & GC, Urine (14 Years and Older) (04/24/2023 2:43 PM CDT) Pathologist [facility] Chlamydia Trachomatis STD Not Detected Not Detected 04/24/2023 11:51 PM CDT [facility] N. gonorrhoeae STD Not Detected Not Detected 04/24/2023 11:51 PM CDT [facility] Urine STD (Urine for STD) Non-blood Collection / Unknown 04/24/2023 2:43 PM CDT 04/24/2023 3:55 PM CDT [facility] - 04/24/2023 11:51 PM CDT Test performed by Mining Captain Mediated Amplification (TMA). Urine Volume submitted was greater than 30 ml. Excess collection volume may decrease test sensitivity. Recollection suggested if clinically indicated. Gabe Moreira MD LAB_1 [facility] [address] [phone] documented in this encounter Visit Diagnoses Diagnosis Poor sleep pattern- Primary Other sleep disturbances Sleep disturbance Sleep disturbance, unspecified Major depressive disorder, recurrent, in remission, unspecified (HRC) Anxiety (HRC) Anxiety state, unspecified PTSD (post-traumatic stress disorder) (HRC) Posttraumatic stress disorder Routine screening for STI (sexually transmitted infection) Screening examination for venereal disease documented in this encounter Care Teams Surveillance Camera Technician Relationship Specialty Start Date End Date Gabe Moreira MD [address] [place] [id number] PCP - General Manager Eligibility 04/30/20 documented as of this encounter
--- OUTSIDE RECORDS SUMMARY | 2023-09-22 07:49 | XMS_ITS | Encounter Summary ---
Author Name Unknown Organization [facility] Address [address] [place] [address] Care Team Providers Care Audiometric Technician Name Role Phone Gabe Moreira MD Primary Care Provider + [phone] Encounter Details Date Type Department Care Team Description 04/24/2023 3:00 PM CDT Lab Visit [facility] [address] [place] [address] Routine screening for STI (sexually transmitted infection) [...] 0.030 {s_co_ratio } 04/24/2023 11:21 PM CDT [facility] Treponema Screen Interpretation Non Reactive Non Reactive 04/24/2023 11:21 PM CDT [facility] Blood Venipuncture / Unknown 04/24/2023 3:02 PM CDT 04/24/2023 3:02 PM CDT Gabe Moreira MD LAB_1 [facility] [address] * HIV 1/2 Ag/Ab 4th Generation (04/24/2023 3:02 PM CDT) HIV 1/2 Antigen/Anti body (4th generation) Negative (Non Reactive) Negative (Non Reactive) 04/24/2023 7:51 PM CDT [facility] Comment:HIV-1 p24 Antigen an d HIV-1/HIV-2 Antibody not detected Blood Venipuncture / Unknown 04/24/2023 3:02 PM CDT 04/24/2023 3:02 PM CDT Gabe Moreira MD LAB_1 [facility] [address] [phone] documented in this encounter Visit Diagnoses Diagnosis Routine screening for STI (sexually transmitted infection) Screening examination for venereal disease documented in this encounter Care Teams Audiometric Technician Relationship Specialty Start Date End Date Gabe Moreira MD [address] [id number] PCP - General Security Orderly 04/30/20 documented as of this encounter
--- OUTSIDE RECORDS SUMMARY | 2023-09-22 07:49 | XMS_ITS | Encounter Summary ---
Author Name Unknown Organization [facility] Address [address] [place] [address] Care Team Providers Care Support Services Tech Name Role Phone Gabe Moreira MD Primary Care Provider + [phone] Encounter Details Date Type Department Care Team Description 04/03/2023 maria antonia Sandhu [phone] Social History Tobacco Use Types Packs/Day Years [...] of : 86 Provider Jatin Pereira Physician Garnett Machine Operator Helper Note From Provider Stephane Sommer! Please read through the attached treatment plan. If you have any questions or concerns, please do not hesitate to reach out. Take care, and have a great day Kemal!Jatin Inman PA-C Treatment Plan Since you were exposed to chlamydia, gonorrhea and trichomoniasis infections, let?? use antibioticsto treat a possible infection. I sent your prescriptions to [facility]/pharmacy. I??e also listed a few ofthe best [...] as one dose. Refills: None Sent To: [facility]/pharmacy [address] [place] [address] Treatment Plan Self Care Tip Topics You??e [...] XL (bupropion HCl) fluoxetine (fluoxetine) Allergies None [email or web address] Information [facility] We are an online clinic open 06/04. If you have any questions or comments about this visit, please call or email [email or web address] documented in this encounter Plan of Treatment Not on file documented as of this encounter Visit Diagnoses Not on filedocumented in this encounter Care Teams Support Services Tech Relationship Specialty Start Date End Date Gabe Moreira MD [address] [place] [id number] PCP - General Carton Inspector 04/30/20 documented as of this encounter
--- NOTE | 2023-09-22 08:48 | PM.GSHP ---
History of Present Illness History of Present Illness Date Seen: 09/22/23 Chief complaint: Abdominal Pain Narrative: Kemal Hill is a 33 year old male presented to emergency room after he developed epigastric abdominal pain last night. The pain was getting more severe and radiated to the right lower quadrant. The pain was described as constant and sharp. Patient had nausea but no vomiting. He took Zofran but that did not help. He also had diarrhea. He decided to present to the emergency room. In the emergency room he was found to have an elevated WBC of 11. An abdominal CT was obtained that showed a dilated wall enhancing appendix with no periappendiceal abscess. Review of Systems Narrative: General: no fevers HENT: no problems swallowing CV: no shortness of breath Resp: no cough GI: See above Skin: no new rashes Musculoskeletal: no back pain Neuro: no muscle weakness Psyche: no depression, no anxiety PFSH PFSH Medical History (Updated 09/22/23 @ 08:52 by Azeem Ramírez MD) No significant past medical history Surgical History (Updated 09/22/23 @ 08:52 by Azeem Ramírez MD) H/O breast surgery ?Z98.890 - Other specified postprocedural states (ICD-10) History of major abdominal surgery ?Z98.890 - Other specified postprocedural states (ICD-10) No significant past surgical history Social History (Updated 09/22/23 @ 08:52 by Azeem Ramírez MD) Narrative: Denies smoking. 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 Smoking Status: Former smoker Second hand tobacco smoke exposure: No How often do you have a drink containing alcohol: monthly or less AUDIT-C Alcohol total score: 1 Non-prescribed substance use: denies use Caffeine: Yes Meds Home Medications and Allergies Home Medications Medication Instructions Recorded Confirmed Type bupropion HCl 150 mg 24 hr tablet, 150 mg PO QAM 05/15/23 09/22/23 History extended release dextroamphetamine-amphetamine 10 1 tab PO DAILY 05/15/23 09/22/23 History mg tablet dextroamphetamine-amphetamine 20 1 tab PO DAILY 05/15/23 09/22/23 History mg tablet fluoxetine 20 mg capsule 20 mg PO DAILY 05/15/23 09/22/23 History metoprolol succinate 25 mg 25 mg PO DAILY 05/15/23 09/22/23 History tablet,extended release 24 hr Allergies Allergy/AdvReac Type Severity Reaction Status Date / Time No Known Drug Allergies Allergy Verified 09/22/23 07:53 Exam Narrative: Exam Narrative: General appearance: Alert, cooperative, and in no distress Pulmonary: Chest symmetric, lungs clear bilaterally Cardiovascular Heart: Regular rate and rhythm, S1, S2, no murmurs/rubs/gallops Gastrointestinal Abdominal: soft, not distended, tender to percussion in the right lower quadrant and tender to palpation in the right lower quadrant with no peritoneal signs. Skin: Normal skin color, texture, and turgor. No rashes or lesions. Psychiatric: Alert, cooperative, normal affect. Const: Vital Signs, click to edit/add: Vital Signs - 24 hr 09/22/23 04:25 09/22/23 05:01 09/22/23 05:15 Temperature 99.2 F Pulse Rate 95 92 Pulse Rate [Pulse Oximeter] 102 H Respiratory Rate 18 Blood Pressure Blood Pressure [Le ft Upper Arm] 129/96 H Pulse Oximetry 96 96 94 Oxygen Delivery Me thod Room Air 09/22/23 05:30 09/22/23 05:45 09/22/23 06:00 Temperature Pulse Rate 86 84 83 Pulse Rate [Pulse Oximeter] Respiratory Rate Blood Pressure Blood Pressure [Le ft Upper Arm] Pulse Oximetry 94 95 98 Oxygen Delivery Me thod 09/22/23 06:15 09/22/23 06:33 09/22/23 06:45 Temperature Pulse Rate 76 81 87 Pulse Rate [Pulse Oximeter] Respiratory Rate Blood Pressure Blood Pressure [Le ft Upper Arm] Pulse Oximetry 95 98 95 Oxygen Delivery Me thod 09/22/23 07:00 09/22/23 07:12 09/22/23 07:13 Temperature 98.3 F Pulse Rate 90 95 87 Pulse Rate [Pulse Oximeter] Respiratory Rate 16 Blood Pressure 123/85 Blood Pressure [Le ft Upper Arm] Pulse Oximetry 94 97 95 Oxygen Delivery Me thod 09/22/23 07:15 09/22/23 07:30 09/22/23 07:32 Temperature Pulse Rate 86 79 74 Pulse Rate [Pulse Oximeter] Respiratory Rate 16 Blood Pressure 127/85 Blood Pressure [Le ft Upper Arm] Pulse Oximetry 94 95 94 Oxygen Delivery Me thod Assessment and Plan Assessment and plan (1) Acute appendicitis: Status: Acute Plan 33-year-old male presents to emergency room with acute appendicitis. I discussed with the patient and his boyfriend his laboratory and CT findings. Patient has evidence of acute appendicitis on CT and clinically on exam. I recommended to proceed with laparoscopic appendectomy. The procedure was discussed in detail. The risks associated procedure including infection, bleeding, and injury to intra-abdominal organs were all discussed with the patient, and he agreed to proceed.
--- NOTE | 2023-09-22 08:57 | P.GSOP_ITS ---
Operative Note Date of procedure: 09/22/23 Pre-op diagnosis: 1. Acute appendicitis. Post-op diagnosis: 1. Acute appendicitis with no evidence of perforation. Type of Procedure: 1. Laparoscopic appendectomy. Indications: 33-year-old male presented to emergency room with abdominal pain that was initially epigastric and then migrated to the right lower quadrant. Patient underwent CT scan and his CT scan showed dilated wall enhancing appendix concerning for acute appendicitis. There was no evidence of periappendiceal abscess. On clinical exam patient had tenderness to palpation in the right lower quadrant. Given patient's clinical history and his physical exam, laparoscopic appendectomy was recommended. The procedure was discussed in detail. The risks associated procedure including infection, bleeding, intra- abdominal infection, and postoperative hernia were all discussed with the patient, and he agreed to proceed. Procedure Description: After discussing the risks and benefits of the procedure, the patient signed informed consent.? The operative site was marked and the patient was brought to the operating room and placed on the operating table in supine position.? Care was taken to pad the patient's pressure points.?? The patient was then intubated by anesthesia.?? The operative site was then prepped and draped in the usual sterile fashion.? A time-out was then performed. A 5-mm laparoscopy port was placed in the left upper quadrant guided by a 5-mm laparoscope placed into a translucent trochar. Passage through the layers of the abdominal wall was visualized with the laparoscope. A pneumoperitoneum was established. A 30-degree 5-mm laparoscope was advanced into the abdomen. The abdomen was briefly surveyed, and there was no evidence of diffuse peritonitis. A 12-mm port and a 5-mm port were placed in the left low quadrant and suprapubically, respectively, under direct visualization by laparoscope. Left upper quadrant entrance port was then examined intraabdominally by placing the camera through the left lower quadrant port and no intraabdominal injury was seen. The patient was placed in Trendelenburg position, allowing the abdominal contents to shift cephalad. The small bowel was moved toward the midline in the abdomen and this allowed for identification of the appendix. It appeared to be inflamed. The appendix was grasped and dissected from the peritoneum using Harmonic scalpel. A [place] clamp was passed between the appendiceal mesentery and the base of the appendix, creating a window. Appendiceal mesentery was skeletonized with Harmonic scalpel. Appendiceal artery was identified and 2 vascular clips were placed on the patient's side and a single clip was placed on the specimen side and the artery was divided. The rest of the appendiceal mesentery was divided with Harmonic scalpel until the appendiceal base was clearly visualized. A 60 mm vascular load Endo-NADEEM stapler was advanced through the 12-mm port into the abdomen and appendix was stapled off at its base. The appendix was then placed in an endoscopic retrieval bag and extracted from the abdomen through the 12-mm port. The abdomen was surveyed for hemostasis. Minimal bleeding was seen near the appendiceal base staple line. A single clip was placed over the staple line. No additional bleeding was seen. The 12-mm port was withdrawn and the fascial defect was closed with 0-0 Vicryl stitch using Giles Justina needle under direct visualization. The 5-mm port was removed under direct visualization. The left upper quadrant port was used to evacuate the pneumoperitoneum and then withdrawn. The skin incisions were closed with 4-0 monocryl. Steri-Strips were applied over the incisions. All counts were correct at the end of the case. The patient tolerated this procedure well and was transferred to PACU in stable condition. Findings: Inflamed appendix with no evidence of perforation. Anesthesia: GETA Surgeon: Azeem Ramírez MD Estimated blood loss (mL): 5 Specimen: Appendix Condition: stable Disposition: PACU
[2023-09-22] MEDS: CEFAZOLIN 2 GM INJ IVP (09:13)
[2023-09-22] MEDS: BUPIVACAINE 0.25% 30 ML 10 ML INJECTION (09:25)
--- NOTE | 2023-09-22 10:02 | W.ANESCHARGE ---
Anesthesia Charges Start Date/Time Anesthesia Start Date: 09/22/23 Anesthesia Start Time: 09:08 Stop Date/Time Anesthesia Stop Date: 09/22/23 Anesthesia Stop Time: 10:04
[2023-09-22] MEDS: HYDROmorphone 0.5 mg/0.5 ml inj IVP ×2 (10:09→10:24)
--- NOTE | 2023-09-22 11:13 | W.ANESCHARGE ---
Anesthesia Charges Start Date/Time Anesthesia Start Date: 09/22/23 Anesthesia Start Time: 09:08 Stop Date/Time Anesthesia Stop Date: 09/22/23 Anesthesia Stop Time: 10:04 Summary Emergency: MDA
== END 2023-09-22 12:08 | disposition home or self-care (01) ==
LOC: ED 07:02 → SS 07:46
PROVIDERS: Emergency Provider Student in an Organized Health Care Education/Training Program; Visit Provider Surgery
PROC: 0DTJ4ZZ Resection of Appendix, Percutaneous Endoscopic Approach (ICD-10-PCS; CPT 44970; principal; 2023-09-22 09:15)
DX: K35.80 Unspecified acute appendicitis (principal)
CPT/HCPCS: 44970; 00840; 36415; 74177; 80053; 83605; 83690; 85025; 87040; 87631; 88304; 99140; 99283; 99284; 99285; J0330; J0665; J0690; J1100; J1170; J1885; J2270; J2371; J2405; J2704; J3010; J7120; Q9967